=== PATIENT | female | born 1990 | race Caucasian/White ===

== ENCOUNTER → 2024-12-08 | Outpatient (CLI) | payer OTHER, SELFPAY ==
--- NOTE | 2024-12-08 11:08 | MRI_ITS ---
PROCEDURE: BREAST BILATERAL W/O AND W 12/08/2024 REASON FOR EXAM: FAMILY HX BREAST CANCER. Right breast pain. TECHNIQUE: Bilateral breast MRI using a dedicated bilateral breast coil before and following intravenous contrast. Images reviewed with subtraction and DynaCAD. CONTRAST: 17 ml of Clariscan IV COMPARISON: None. FINDINGS: Amount of Fibroglandular Tissue: Heterogeneous fibroglandular tissue. Background Parenchymal Enhancement: Minimal background enhancement. RIGHT Breast: No suspicious mass or non-mass enhancement. There are several masses noted throughout the right breast. A complete right breast ultrasound is recommended for further evaluation. These masses may be the cause of her breast pain. LEFT Breast: No suspicious mass or non-mass enhancement. There are several masses noted throughout the left breast. A complete left breast ultrasound is recommended for further evaluation. Other Findings: No suspicious axillary or internal mammary lymph nodes. Visualized portions of the thoracic viscera are unremarkable. Hepatic masses are seen. They appear to represent cysts however ultrasound is recommended for further evaluation. MRI/Breast Bilateral W/O and W IMPRESSION: There are bilateral breast masses and liver masses seen. Ultrasound of both breasts is recommended for further evaluation of the masses. The right breast masses may be the cause of her breast pain. Patient may also benefit by having an ultrasound of the liver for further evalu ation of the hepatic masses. OVERALL BI-RADS CATEGORY: A/0. Incomplete Reading Location: [id number]
== END | disposition home or self-care (01) ==
PROVIDERS: PCP Family Medicine
DX: Z80.3 Family history of malignant neoplasm of breast (principal)
CPT/HCPCS: 77049; A9575; A4216; C8908

== ENCOUNTER → 2025-05-12 | Outpatient (CLI) | payer OTHER, SELFPAY ==
--- NOTE | 2025-05-12 08:42 | US_ITS ---
PROCEDURE: BREAST LIMITED UNILATERAL 05/12/2025 REASON FOR EXAM: F, Age 34 y/o , ABN MAMM COMPARISON: Prior mammogram done earlier in the day.. TECHNIQUE: Procedure Code: USBRSTLIMIT Modality: US Procedure: BREAST LIMITED UNILATERAL. The entire right breast was examined with ultrasound. FINDINGS: There is a 4 mm x 6 mm by 4 mm well-defined hypoechoic solid nodule at the 11 o'clock position of the breast at 4 cm from the nipple. This is unchanged as compared to prior sonogram from an outside institution. This may represent a small fibroadenoma. US/Breast Limited Unilateral IMPRESSION: Stable 4 mm x 4 mm x 6 mm well-defined hypoechoic nodule at the 11 o'clock posi tion of the breast at 4 cm from the nipple. Biopsy recommended if not already performed. BI-RADS 4: SUSPICIOUS RECOMMENDATION: Biopsy Recommended Reading Location: [place] [id number]
--- NOTE | 2025-05-12 08:42 | BI_ITS ---
EXAM: DIAG MAMM W/CAD, BILAT 05/12/2025 CLINICAL HISTORY: F, Age 34 y/o , ABN MAMM. Grandmother with breast cancer. Prior MRI demonstrated bilateral breast masses. TECHNIQUE: Procedure Code: [id number] Modality: MG Procedure: DIAG MAMM W/CAD, BILAT. COMPARISON: Prior exam(s) dated April 30, 2024.. FINDINGS: TISSUE DENSITY: The breasts are extremely dense, which lowers the sensitivity of mammography. Bilateral Breast Mammographic Findings: No significant masses, calcifications or other abnormalities are identified. No suspicious masses, areas of developing architectural distortion, or suspicious calcifications. There has been no significant interval change. BI/DIAG MAMM W/CAD, BILAT IMPRESSION: Stable mammogram. With the patient's history of abnormal MRI, sonographic leonidas elation recommended. OVERALL FINAL ASSESSMENT BI-RADS 0: INCOMPLETE - NEED ADDITIONAL IMAGING EVALUATION. RECOMMENDATION: Ultrasound Recommended Additional Recommendation none A letter with findings and recommendations will be mailed to the patient. Reading Location: [place] [id number]
--- NOTE | 2025-05-12 08:42 | US_ITS ---
PROCEDURE: BREAST LIMITED UNILATERAL 05/12/2025 REASON FOR EXAM: F, Age 34 y/o , ABN MAMM COMPARISON: Prior mammogram done earlier in the day.. TECHNIQUE: Procedure Code: USBRSTLIMIT Modality: US Procedure: BREAST LIMITED UNILATERAL left breast sonogram. FINDINGS: Dense fibroglandular tissue. No sonographic abnormality is seen. US/Breast Limited Unilateral IMPRESSION: Dense fibroglandular tissue. No sonographic abnormality is seen. BI-RADS 1: NEGATIVE RECOMMENDATION: Routine annual follow-up in 1 Year Reading Location: [place] [id number]
== END | disposition home or self-care (01) ==
PROVIDERS: PCP Family Medicine; Referring Provider Obstetrics & Gynecology Obstetrics; Visit Provider Obstetrics & Gynecology Obstetrics
DX: R92.8 Other abnormal and inconclusive findings on diagnostic imaging of breast (principal)
CPT/HCPCS: 76642; 77062; 77066; G0279

== ENCOUNTER → 2025-05-25 | Outpatient (CLI) | payer OTHER, SELFPAY ==
--- NOTE | 2025-05-25 07:41 | US_ITS ---
PROCEDURE: US BREAST BIOPSY 1ST LESION 05/25/2025 REASON FOR EXAM: F, Age 34 y/o , RIGHT BREAST MASS TECHNIQUE: Procedure Code: [id number] Modality: US Procedure: US BREAST BIOPSY 1ST LESION. Under direct sonographic guidance, the surgeon performed core biopsies of the 5 mm x 4 mm x 3 mm hypoechoic nodule at the 11 o'clock position of the breast at 4 cm from the nipple. COMPARISON: Prior exam(s) dating back to prior sonogram dated May 12, 2025.. FINDINGS: ULTRASOUND: Ultrasound was targeted to the 4 o'clock position of the breast right. Under direct sonographic guidance, the surgeon performed for core biopsies of the hypoechoic nodule at the 11 o'clock position of the breast at 4 cm from the nipple. US/US Breast Biopsy 1st Lesion IMPRESSION: OVERALL FINAL ASSESSMENT: BIRADS 4C SUSPICIOUS ABNORMALITY- RECOMMENDATION: Await in the pathology results. Reading Location: [id number]
--- OUTSIDE RECORDS SUMMARY | 2025-05-25 07:58 | XMS RPT_ITS | CCD ---
Author Organization [facility] [place] [facility] Team Providers Care Microsoft Access Developer Name Role Phone Sylvia Hansen MD Primary Care [facility] er SYLVIA HANSEN Attending Unavailable TYRONE, SYLVIA Primary Care Unavailable PROVIDER, UNKNOWN Referring Unavailable SYLVIA HANSEN Attending Unavailable TYRONE, SYLVIA Primary Care Unavailable PROVIDER, UNKNOWN Referring Unavailable SYLVIA HANSEN Attending Unavailable PROVIDER, UNKNOWN Referring Unavailable SYLVIA HANSEN Primary Care Unavailable SYLVIA HANSEN Attending Unavailable PROVIDER, UNKNOWN Referring Unavailable SYLVIA HANSEN Primary Care Unavailable SYLVIA HANSEN Attending Unavailable SYLVIA HANSEN Primary Care Unavailable PROVIDER, UNKNOWN Referring Unavailable PHYSICIAN, NONE Primary Care Physician Unavailab le PHYSICIAN, NONE Primary Care Unavailable MIRIAM LIN Attending Unavailable JACQUIE CYR, DR SALIMA Solomon Attending Arcelia DHILLON MD, DR SALIMA Solomon Admitting Arcelia lara PHYSICIAN, NONE Primary Care Unavailable Sylvia Hansen MD Primary Care Provider [phone] ANGELA RICHARDSON Attending Unavailable ANGELA RICHARDSON Referring Unavailable SYLVIA HANSEN Primary Care Unavailable ANGELA RICHARDSON Attending Unavailable ANGELA RICHARDSON Referring Unavailable TYRONE, SYLVIA Primary Care Unavailable SYLVIA HANSEN Attending Unavailable SYLVIA HANSEN Referring Unavailable TYRONE, SYLVIA Primary Care Unavailable Brooklynan, Sylvia Primary Care Unavailable Kuldeep Pardo Referring Unavailable Kuldeep Pardo Attending Unavailable JOSE ALFREDO DAMON Referring Unavailable JOSE ALFREDO DAMON Attending Unavailable FinSylvia Moralez Primary Care Unavailabl e Tyrone, Sylvia Primary Care Unavailable Kuldeep London Referring Unavailable Kuldeep London Attending Unavailable Kuldeep Pardo Attending Unavailable Sylvia Hansen Referring Unavailable FinSylvia mills Primary Care Unavailable Surya CYR, Dr. Kuldeep Chan Attending Physician Surya CYR, Dr. Kuldeep Chan Referring Provider Tyrone CYR, Dr. Greenwood Primary Care Physician Tyrone CYR, Dr. Greenwood Referring Provider Char CYR, Dr. Kuldeep Fortune Attending Physician [phone] Medications Current Medications Medication Drug Class(es) Dates Sig (Normalized) Sig (Original) Drospirenone-Ethin yl Estradiol (6 sources) Progestin, Estrogen Start: 05-18-2025 take 3 tablets by mouth once daily Drospirenone-Ethi nyl Estradiol (Kajal (28)) 3-0.02 mg tablet Active 1 {tbl} PO daily May 18, 2025 12:00am Complies with drug therapy Start: 11-28-2018 take 1 tablet by addie th once daily GIANVI 3-0.02 MG per tablet TAKE 1 TABLET BY MOUTH EVERY DAY 84 tablet 3 11/28/2018 Active ibuprofen 600 mg oral tablet (1 source) Nonsteroidal Anti-inflammatory Drug Start: 05-16-2020 ibuprofen 600 mg oral tablet Dose : 600 mg = 1 tab(s), Oral, q6h, PRN for pain, Take with food or milk., # 40 tab(s), 0 Refill(s) Start Date: 05/16/20 Status: Ordered PNV Select (1 source) Start: 05-15-2020 PNV Select Ora l, qDay, 0 Refill(s) Start Date: 05/15/20 Status: Ordered Completed/Discontinued Medications Medication Drug Class(es) Dates Sig (Normalized) Sig (Original) [id number] 200 actuat albuterol 0.09 mg/actuat metered dose inhaler (1 source) beta2-Adrenergic Agonist Start: 11-15-2021 End: 11-15-2021 albuterol sulfate HFA 108 (90 Base) MCG/ACT inhaler 4 puff Start: 11-15-2021 End: 11-15-2021 albuterol sulfate HFA 108 (9 0 Base) MCG/ACT inhaler 4 puff Problems Active Problems Problem Classification Problem Date Documented Date Episodic/Chronic Biliary tract disease (4 sources) Cholesterolosis of gallbladder; Translations: [Disease of gallbladder, unspecified] Onset: 11-15-2021 Episodic Nonmalignant breast conditions (15 sources) Pain of breast; Translations: [Mastodynia] Onset: 04-30-2024 04-30-2024 Episodic Other diseases of kidney and ureters (2 sources) Cyst of kidney, acquired; Translations: [Cyst of kidney, acquired] Onset: 06-07-2022 Episodic Other liver diseases (2 sources) Other specified diseases of liver; Translations: [Other specified diseases of liver] Onset: 06-07-2022 Chronic Other and delivery including normal (3 sources) ; Translations: [Encounter for supervision of other normal , third trimester] Onset: 04-18-2023 05-11-2023 Episodic Comment on above: System added from do cumentation. Status documented as Yes on Admission Other screening for suspected conditions (not mental disorders or infectious disease) (2 sources) Abnormal findings on diagnostic imaging of other specified body structures; Translations: [Abnormal findings on dx imaging of oth body structures] Onset: 10-28-2021 Chronic Other screening for suspected conditions (not mental disorders or infectious disease) (4 sources) Encounter for screening for Streptococcus B; Translations: [Other abnormal and inconclusive findings on diagnostic imaging of breast] Onset: 04-18-2023 Episodic Unclassified (1 source) Cough, unspecified; Translations: [Cough, unspecified] Onset: 10-20-2021 Unclassified (1 source) Breast feeding () (observable entity) 05-15-2020 Comment on above: System added from do cumentation. Breast feeding Status documented as Yes on Admission Past or Other Problems Problem Classification Problem Date Documented Da te Episodic/Chronic Other lower respiratory disease (2 sources) Other nonspecific abnormal finding of lung field; Translations: [Other nonspecific abnormal finding of lung field] Onset: 10-20-2021 Episodic Residual codes; unclassified (1 source) Family history of malignant neoplasm of breast; Translations: [Family history of malignant neoplasm of breast] Onset: 01-27-2025 Episodic Unclassified (1 source) Cough, unspecified; Translations: [Cough, unspecified] Onset: 10-20-2021 Results Test Name Value Interpretation Reference Range Facility Surgery Visit Reporton 05-18 Surgery Visit Report [facility] [address] [place] [address] OFFICE VISIT Date of Service: 05/18/25 MR#: [id number] Acct: [id number] Name: CARLOS FRANCOIS Rep #: [id number] : 1990 Provider: Dr. Kuldeep garcia MD Age/Sex: 34/F Location: [facility] Status: Signed Intake Vital Signs 05/18/25 13:59 Weight: 193 lb BP 115/76 Blood Pressure Location Rt brachial Position Sitting Respiration 17 Pulse 62 Pulse Source Monitor Pulse Oximetry (%) 100 Oxygen Delivery Method room air Intake Visit Reasons: BIRADS 4 Chief Complaint: birads 4 Is patient in pain?: No Allergies No Known Allergies Allergy (Verified 05/18/25 14:00) Medications ???Medication ???Instructions ???Recorded ???Confirmed ???Type drospirenone 3 mg-ethinyl 1 tab PO QDAY 05/18/25 05/18/25 Hi story estradiol 0.02 mg tablet (KAJAL (28)) PFSH Family History (Updated 05/18/25 @ 13:58 by Latrice Akins) Grandmother Breast cancer Father Heart disease Hypertension Social History (Updated 05/18/25 @ 13:58 by Latrice Akins) Smoking Status: Never smoker alcohol intake: current alcohol intake frequency: holidays/special occasions only HPI HPI HPI: The patient is a 34-year-old female who is being seen today for an abnormal right breast mammogram and ultrasound. She states that she does have a family history of breast cancer in one of her grand mothers. No other family members with breast cancer. She denies any nipple discharge or drainage. She notes some mild tenderness in the upper aspect of the right breast but no obvious masses or other abnormalities. She states that this tenderness has been present for about the past year. Ultrasound recently showed about a 3 to 4 mm hypoechoic nodule in the right breast. She presents today for evaluation and possible biopsy ROS General General: No weight change, appetite, fatigue, colon cancer, breast cancer or weakness HEENT HEENT: No difficulty swallowing, eye injury, eye surgery, swollen glands or hoarseness Endo Endocrine: No thyroid disease, diabetes mellitus, thyroid cancer, Hair loss, heat intolerance or cold intolerance Skin Skin: Yes changing moles; No rash Breast Breast: Yes right breast lump, abnormal mammogram and abnormal US; No left breast lump, nipple discharge, breast pain or breast enlargement Musc Musculoskeletal: No back problems, arthritis, rheumatoid arthritis, gout or joint pain Cardio Cardiovascular: No murmur, pacemaker, heart disease, atrial fibrillation, high blood pressure, heart attack, heart stent, palpitations, shortness of breath with exertion or chest pain Psych Psychiatric: No depression, anxiety or hearing voices Resp Respiratory: No shortness of breath, No sleep apnea, No cough, No COPD, No asthma, No emphysema and No wheezing Gastro Gastrointestinal: No abdominal pain, No nausea or vomiting, No diarrhea, No constipation, No blood in stool, No acid reflux, No hemorrhoids, No ulcers, No gallbladder problem and No black,tarry stools Sameer Hematologic: No blood thinners, No blood disorders, No bleeding, No anemia and No blood clots Neuro Neurologic: No system reviewed and no additional complaints, except as documented, No as per HPI, No abnormal gait, No abnormal hearing, No abnormal movements, No abnormal speech, No behavioral changes, No burning sensations, No confusion, No convulsions, No disequilibrium, No dizziness, No localized weakness, No frequent falls, No headache(s), No lack of coordination, No loss of vision, No memory loss, No numbness, No other visual disturbances, No radicular pain, No restless legs, No sensory deficit, No syncope, No tingling, No tremor(s), No weakness and No other Exam Const General: cooperative, healthy appearing, comfortable, no acute distress and acute distress [facility] Head: normal to inspection Eyes General: appearance normal, both eyes and all related structures Neck Neck: normal visual inspection Chest Breast Palpation: Yes normal palpation of the breasts and Yes normal palpation of the axillae Assessment and Plan Assessment and Plan (1) Breast mass, right: Status: Acute Plan: The patient is a 34-year-old female who presents today with an abnormal right breast ultrasound. This showed a 3 to 4 mm hypoechoic lesion. Biopsy was recommended. This was felt to be too small to identify in the office today. Instead, I have recommended that we schedule this as an ultrasound-guided core biopsy to be performed in radiology. We discussed the details of the planned procedure and she wishes to proceed. This will be scheduled in a timely manner. Coding Level of Care Code Off vis,new,level 4 Diagnoses Breast mass, right N63.10 05/18/25 1434 Date (more content not included)... Normal [facility] Breast imaging reportOrdered By: Angel Lockwood on 05-13-2025 Study report [facility] Services [address] [place] [address] DIAG MAMM W/CAD, BILAT MR#: [id number] Acct: [id number] Name: CARLOS FRANCOIS Rep #: [id number] : 1990 F 34 From: Jeffry Lockwood MD PCP: Dr. Sylvia Hansen MD Status: R EG CLI Study:DIAG MAMM W/CAD, BILAT Date of Exam: 05/12/25 Exam# [id number] Ordering Dr: Kuldeep London MD EXAM: DIAG MAMM W/CAD, BILAT 05/12/2025 CLINICAL HISTORY: F, Age 34 y/o , ABN MAMM. Grandmother with breast cancer. Prior MRI demonstrated bilateral breast masses. TECHNIQUE: Procedure Code: BIDMWCADB Modality: MG Procedure: DIAG MAMM W/CAD, BILAT. COMPARISON: Prior exam(s) dated April 30, 2024.. FINDINGS: TISSUE DENSITY: The breasts are extremely dense, which lowers the sensitivity ofmammography. Bilateral Breast Mammographic Findings: No significant masses, calcifications or other abnormalities are identified. No suspicious masses, areas of developing architectural distortion, or suspicious calcifications. There has been no significant interval change. BI/DIAG MAMM W/CAD, BILAT IMPRESSION: Stable mammogram. With the patient's history of abnormal MRI, sonographic correlation recommended. OVERALL FINAL ASSESSMENT BI-RADS 0: INCOMPLETE - NEED ADDITIONAL IMAGING EVALUATION. RECOMMENDATION: Ultrasound Recommended Additional Recommendation none A letter with findings and recommendations will be mailed to the patient. Reading Location: [place] [address] CC: Dr. Sylvia Hansen MD; Dr. Kuldeep London MD ~ Dinkey Mechanic: Signed [facility] Breast Limited Unilateralon 05-12-2025 Breast Limited Unilateral [facility] Imaging Services [address] [place], [place] [address] Breast Limited Unilateral MR#: [id number] Acct: [id number] Name: CARLOS FRANCOIS Rep #: [id number] : 1990 F 34 From: Angel colvin MD PCP: Dr. Sylvia Hansen MD Status: REG CLI Study: Breast Limited Unilateral Date of Exam: Exam# [id number] Ordering Dr: Kuldeep London MD PROCEDURE: BREAST LIMITED UNILATERAL 05/12/2025 REASON FOR EXAM: F, Age 34 y/o , ABN MAMM COMPARISON: Prior mammogram done earlier in the day.. TECHNIQUE: Procedure Code: USBRSTLIMIT Modality: US Procedure: BREAST LIMITED UNILATERAL left breast sonogram. FINDINGS: Dense fibroglandular tissue. No sonographic abnormality is seen. US/Breast Limited Unilateral IMPRESSION: Dense fibroglandular tissue. No sonographic abnormality is seen. BI-RADS 1: NEGATIVE RECOMMENDATION: Routine annual follow-up in 1 Year Reading Location: [facility]- CC: Dr. Sylvia Hansen MD; Dr. Kuldeep London MD Dinkey Mechanic: Signed Normal [facility] Breast Limited Unilateral [facility] Imaging Services [address] [place], [place] [address] Breast Limited Unilateral MR#: [id number] Acct: [id number] Name: CARLOS FRANCOIS Rep #: [id number] : 1990 F 34 From: Angel colvin MD PCP: Dr. Sylvia Hansen MD Status: REG CLI Study: Breast Limited Unilateral Date of Exam: Exam# [id number] Ordering Dr: Kuldeep London MD PROCEDURE: BREAST LIMITED UNILATERAL 05/12/2025 REASON FOR EXAM: F, Age 34 y/o , ABN MAMM COMPARISON: Prior mammogram done earlier in the day.. TECHNIQUE: Procedure Code: USBRSTLIMIT Modality: US Procedure: BREAST LIMITED UNILATERAL. The entire right breast was examined with ultrasound. FINDINGS: There is a 4 mm x 6 mm by 4 mm well-defined hypoechoic solid nodule at the 11 o'clock position of the breast at 4 cm from the nipple. This is unchanged as compared to prior sonogram from an outside institution. This may represent a small fibroadenoma. US/Breast Limited Unilateral IMPRESSION: Stable 4 mm x 4 mm x 6 mm well-defined hypoechoic nodule at the 11 o'clock position of the breast at 4 cm from the nipple. Biopsy recommended if not already performed. BI-RADS 4: SUSPICIOUS RECOMMENDATION: Biopsy Recommended Reading Location: [place] [address] CC: Dr. Sylvia Hansen MD; Dr. Kuldeep London MD Dinkey Mechanic: Signed Normal [facility] DIAG MAMM W/CAD, BILATon [facility] Imaging Services [address] [place] [address] DIAG MAMM W/CAD, BILAT MR#: [id number] Acct: [id number] Name: CARLOS FRANCOIS Rep #: [id number] : 1990 F 34 From: Angel colvin MD PCP: Dr. Sylvia Hansen MD Status: [facility] Study: DIAG MAMM W/CAD, BILAT Date of Exam: 05/12/25 Exam# [id number] Ordering Dr: Kuldeep London MD EXAM: DIAG MAMM W/CAD, BILAT 05/12/2025 CLINICAL HISTORY: F, Age 34 y/o , ABN MAMM. Grandmother with breast cancer. Prior MRI demonstrated bilateral breast masses. TECHNIQUE: Procedure Code: BIDMWCADB Modality: MG Procedure: DIAG MAMM W/CAD, BILAT. COMPARISON: Prior exam(s) dated April 30, 2024.. FINDINGS: TISSUE DENSITY: The breasts are extremely dense, which lowers the sensitivity of mammography. Bilateral Breast Mammographic Findings: No significant masses, calcifications or other abnormalities are identified. No suspicious masses, areas of developing architectural distortion, or suspicious calcifications. There has been no significant interval change. BI/DIAG MAMM W/CAD, BILAT IMPRESSION: Stable mammogram. With the patient's history of abnormal MRI, sonographic correlation recommended. OVERALL FINAL ASSESSMENT BI-RADS 0: INCOMPLETE - NEED ADDITIONAL IMAGING EVALUATION. RECOMMENDATION: Ultrasound Recommended Additional Recommendation none A letter with findings and recommendations will be mailed to the patient. Reading Location: [place] [address] CC: Dr. Sylvia Hansen MD; Dr. Kuldeep Lnodon MD Dinkey Mechanic: Signed Normal [facility] Breast Bilateral W/O and Won 12-08-2024 Breast Bilateral W/O and W [facility] Imaging Services [address] [place] [id number] Breast Bilateral W/O and W MR#: [id number] Acct: [id number] Name: CARLOS FRANCOIS Rep #: [id number] : 1990 F 33 From: Fauzia Montez PCP: Sylvia Hansen MD Status: DEP CLI Study: Breast Bilateral W/O and W Date of Exam: 12/08 Exam# [id number] Ordering Dr: KULDEEP LONDON PROCEDURE: BREAST BILATERAL W/O AND W 12/08/2024 REASON FOR EXAM: FAMILY HX BREAST CANCER. Right breast pain. TECHNIQUE: Bilateral breast MRI using a dedicated bilateral breast coil before and following intravenous contrast. Images reviewed with subtraction and DynaCAD. CONTRAST: 17 ml of Clariscan IV COMPARISON: None. FINDINGS: Amount of Fibroglandular Tissue: Heterogeneous fibroglandular tissue. Background Parenchymal Enhancement: Minimal background enhancement. RIGHT Breast: No suspicious mass or non-mass enhancement. There are several masses noted throughout the right breast. A complete right breast ultrasound is recommended for further evaluation. These masses may be the cause of her breast pain. LEFT Breast: No suspicious mass or non-mass enhancement. There are several masses noted throughout the left breast. A complete left breast ultrasound is recommended for further evaluation. Other Findings: No suspicious axillary or internal mammary lymph nodes. Visualized portions of the thoracic viscera are unremarkable. Hepatic masses are seen. They appear to represent cysts however ultrasound is recommended for further evaluation. MRI/Breast Bilateral W/O and W IMPRESSION: There are bilateral breast masses and liver masses seen. Ultrasound of both breasts is recommended for further evaluation of the masses. The right breast masses may be the cause of her breast pain. Patient may also benefit by having an ultrasound of the liver for further evaluation of the hepatic masses. OVERALL BI-RADS CATEGORY: A/0. Incomplete Reading Location: [id number] CC: Sylvia Hansen MD; KULDEEP LONDON Dinkey Mechanic: Signed Normal [facility] BI US BREAST LIMITED RIGHTon 10-29-2024 BI US BREAST LIMITED RIGHT This is a summary report. The complete report is available in the patient's medical record. If you cannot access the medical record, please contact the sending organization for a detailed fax or copy. Patient Name: CARLOS FRANCOIS : 1990 [id number] Exam Date/Time: 10/29/2024 07:51 Procedure: BI US BREAST LIMITED RIGHT Ordering Provider: HANSEN MATTHEW Reason For Exam: This exam was performed at [place] [address] RISK ALERT: The Cancer Risk Assessment scores below the recommendation of this report contain an outcome above the normal risk range. PATIENT CANCER HISTORY: No Personal History of Cancer FAMILY CANCER HISTORY: Paternal Grandmother Breast Cancer age 50 Prior study Comparisons: 04/30/2024 Findings: The patient presents for a right breast ultrasound for follow-up of a probably benign right breast mass. This is the first six-month follow-up exam. There is a stable 5 mm circumscribed hypoechoic mass within the right breast at the 11:00 location, 4 cm from the nipple. This remains probably benign. IMPRESSION: Stable probably benign right breast mass. A six-month follow up bilateral diagnostic mammogram right breast ultrasound is recommended. ASSESSMENT: Category 3 Probably benign RECOMMENDATION: Diagnostic mammogram in 6 months Bilateral Breast ultrasound in 6 months Right CANCER RISK ASSESSMENT: This risk assessment is based on patient provided information collected in a risk survey taken at the time of this examination. LIFETIME BREAST CANCER RISK: Brianer-Rubyzick 8: 25.34% - If greater than or equal to 20%, consider annual mammogram and annual screening Breast MRI or follow up in high risk clinic. Is the patient at elevated risk based on the HBOC criteria? Yes (Hereditary Breast and Ovarian Cancer) - If Yes, consider genetic counseling and testing with high risk follow up Is the patient at elevated risk based on the Cox Syndrome criteria? No - If Yes, consider genetic counseling and testing with high risk follow up. Report Dictated on Electronically Signed By: Dilma Morton MD Electronically Signed Date/Time: 10/29/2024 8:31 AM T [email or web address] Operational Intelligence Analyst ID: [id number] Request ID: [id number] [facility] US Breast - right limitedon 10-29-2024 Stable probably omer gn right breast mass. A six-month follow up bilateral diagnostic mammogram right breast ultrasound is recommended. ASSESSMENT: Category 3 Probably benign RECOMMENDATION: Diagnostic mammogram in 6 months Bilateral Breast ultrasound in 6 months Right CANCER RISK ASSESSMENT: This risk assessment is based on patient provided information collected in a risk survey taken at the time of this examination. LIFETIME BREAST CANCER RISK: Brianer-Cuzick 8: 25.34% - If greater than or equal to 20%, consider annual mammogram and annual screening Breast MRI or follow up in high risk clinic. Is the patient at elevated risk based on the HBOC criteria? Yes (Hereditary Breast and Ovarian Cancer) - If Yes, consider genetic counseling and testing with high risk follow up Is the patient at elevated risk based on the Cox Syndrome criteria? No - If Yes, consider genetic counseling and testing with high risk follow up. Report Dictated on Electronically Signed By: Dilma Morton MD Electronically Signed Date/Time: 10/29/2024 8:31 AM [facility] Patient Name: CARLOS FRANCOIS : 1990 Exam Date/Time: 10/29/2024 07:51 Procedure: BI US BREAST LIMITED RIGHT Ordering Provider: HANSEN MATTHEW Reason For Exam: This exam was performed at [facility] [address] [place] [address] RISK ALERT: The Cancer Risk Assessment scores below the recommendation of this report contain an outcome above the normal risk range. PATIENT CANCER HISTORY: No Personal History of Cancer FAMILY CANCER HISTORY: Paternal Grandmother Breast Cancer age 50 Prior study Comparisons: 04/30/2024 Findings: The patient presents for a right breast ultrasound for follow-up of a probably benign right breast mass. This is the first six-month follow-up exam. There is a stable 5 mm circumscribed hypoechoic mass within the right breast at the 11:00 location, 4 cm from the nipple. This remains probably benign. [facility] Dilma Morton MD - 10/29/2024 Patient Name: CARLOS FRANCOIS : 1990 Exam Date/Time: 10/29/2024 07:51 Procedure: BI US BREAST LIMITED RIGHT Ordering Provider: HANSEN MATTHEW Reason For Exam: This exam was performed at [facility] [address] [place] [address] RISK ALERT: The Cancer Risk Assessment scores below the recommendation of this report contain an outcome above the normal risk range. PATIENT CANCER HISTORY: No Personal History of Cancer FAMILY CANCER HISTORY: Paternal Grandmother Breast Cancer age 50 Prior study Comparisons: 04/30/2024 Findings: The patient presents for a right breast ultrasound for follow-up of a probably benign right breast mass. This is the first six-month follow-up exam. There is a stable 5 mm circumscribed hypoechoic mass within the right breast at the 11:00 location, 4 cm from the nipple. This remains probably benign. IMPRESSION: Stable probably benign right breast mass. A six-month follow up bilateral diagnostic mammogram right breast ultrasound is recommended. ASSESSMENT: Category 3 Probably benign RECOMMENDATION: Diagnostic mammogram in 6 months Bilateral Breast ultrasound in 6 months Right CANCER RISK ASSESSMENT: This risk assessment is based on patient provided information collected in a risk survey taken at the time of this examination. LIFETIME BREAST CANCER RISK: Yoandy 8: 25.34% - If greater than or equal to 20%, consider annual mammogram and annual screening Breast MRI or follow up in high risk clinic. Is the patient at elevated risk based on the HBOC criteria? Yes (Hereditary Breast and Ovarian Cancer) - If Yes, consider genetic counseling and testing with high risk follow up Is the patient at elevated risk based on the Cox Syndrome criteria? No - If Yes, consider genetic counseling and testing with high risk follow up. Report Dictated on Electronically Signed By: Dilma Morton MD Electronically Signed Date/Time: 10/29/2024 8:31 AM EDT [facility] Radiology Study observation (narrative) [facility] US Breast - right limitedOrd ered By: Dilma Morton on 10-29-2024 [facility] Work Phone: BI US BREAST LIMITED RIGHTon 04-30-2024 BI US BREAST LIMITED RIGHT This is a summary report. The complete report is available in the patient's medical record. If you cannot access the medical record, please contact the sending organization for a detailed fax or copy. Patient Name: CARLOS FRANCOIS : 1990 Exam Date/Time: 04/30/2024 09:07 Procedure: BI US BREAST LIMITED RIGHT Ordering Provider: RICHARDSON ELIZABETH Reason For Exam: [place]STAL[place] This exam was performed at: [address] [address] RISK ALERT: The Cancer Risk Assessment scores below the recommendation of this report contain an outcome above the normal risk range. PATIENT CANCER HISTORY: No Personal History of Cancer FAMILY CANCER HISTORY: Paternal Grandmother Breast Cancer age 50 COMPARISONS: There were no priors available for comparison. MAMMOGRAM: Image views: 2D CC and MLO views were acquired. 3D CC and MLO views were acquired. Markings on images: BB's = Nipples; skin lesions Open nez perce = Palpable Line = Scar TISSUE DENSITY: BIRADS C - The breast tissue is heterogeneously dense, which could obscure underlying abnormalities. Images were reviewed with CAD. FINDINGS: The patient presented for evaluation of pain with compression beneath the right nipple. No suspicious masses, architectural distortions, or suspiciously clustered microcalcifications were identified in the right or left breast. This was the patient's baseline mammogram. The patient proceeded to ultrasound for further workup. BREAST ULTRASOUND: FINDINGS: Targeted ultrasound of the nipple demonstrated a likely incidental 0.5 x 0.4 x 0.6 cm oval circumscribed hypoechoic mass. No vascularity was detected. This may reflect a complicated cyst. Follow-up recommended. IMPRESSION: Incidental right breast mass, likely a benign complicated cyst. Surveillance with ultrasound in six months recommended. ASSESSMENT: Category 3 Probably benign RECOMMENDATION: Breast ultrasound in 6 months Right CANCER RISK ASSESSMENT: This risk assessment is based on patient provided information collected in a risk survey taken at the time of this examination. LIFETIME BREAST CANCER RISK: Yoandy 8: 25.34% - If greater than or equal to 20%, consider annual mammogram and annual screening Breast MRI or follow up in high risk clinic. Is the patient at elevated risk based on the HBOC criteria? Yes (Hereditary Breast and Ovarian Cancer) - If Yes, consider genetic counseling and testing with high risk follow up Is the patient at elevated risk based on the Cox Syndrome criteria? No - If Yes, consider genetic counseling and testing with high risk follow up. Report Dictated on Electronically Signed By: Augustine Simpson MD Electronically Signed Date/Time: 04/30/2024 9:14 AM EDT Normal [facility] DBT Breast - bilateral diagn osticon 04-30-2024 Patient Name: CARLOS FRANCOIS : 1990 Exam Date/Time: 04/30/2024 08:02 Procedure: BI MAMMOGRAM DIAGNOSTIC TOMOSYNTHESIS BILATERAL Ordering Provider: RICHARDSON ELIZABETH Reason For Exam: This exam was performed at: [place] [address] RISK ALERT: The Cancer Risk Assessment scores below the recommendation of this report contain an outcome above the normal risk range. PATIENT CANCER HISTORY: No Personal History of Cancer FAMILY CANCER HISTORY: Paternal Grandmother Breast Cancer age 50 COMPARISONS: There were no priors available for comparison. MAMMOGRAM: Image views: 2D CC and MLO views were acquired. 3D CC and MLO views were acquired. Markings on images: BB's = Nipples; skin lesions Open nez perce = Palpable Line = Scar TISSUE DENSITY: BIRADS C - The breast tissue is heterogeneously dense, which could obscure underlying abnormalities. Images were reviewed with CAD. FINDINGS: The patient presented for evaluation of pain with compression beneath the right nipple. No suspicious masses, architectural distortions, or suspiciously clustered microcalcifications were identified in the right or left breast. This was the patient's baseline mammogram. The patient proceeded to ultrasound for further workup. BREAST ULTRASOUND: FINDINGS: Targeted ultrasound of the nipple demonstrated a likely incidental 0.5 x 0.4 x 0.6 cm oval circumscribed hypoechoic mass. No vascularity was detected. This may reflect a complicated cyst. Follow-up recommended. [facility] Augustine Simpson MD - 04/30/2024 Patient Name: CARLOS FRANCOIS : 1990 [facility]#: [id number] Exam Date/Time: 04/30/2024 08:02 Procedure: BI MAMMOGRAM DIAGNOSTIC TOMOSYNTHESIS BILATERAL Ordering Provider: RICHARDSON ELIZABETH Reason For Exam: This exam was performed at: [address] [address] RISK ALERT: The Cancer Risk Assessment scores below the recommendation of this report contain an outcome above the normal risk range. PATIENT CANCER HISTORY: No Personal History of Cancer FAMILY CANCER HISTORY: Paternal Grandmother Breast Cancer age 50 COMPARISONS: There were no priors available for comparison. MAMMOGRAM: Image views: 2D CC and MLO views were acquired. 3D CC and MLO views were acquired. Markings on images: BB's = Nipples; skin lesions Open nez perce = Palpable Line = Scar TISSUE DENSITY: BIRADS C - The breast tissue is heterogeneously dense, which could obscure underlying abnormalities. Images were reviewed with CAD. FINDINGS: The patient presented for evaluation of pain with compression beneath the right nipple. No suspicious masses, architectural distortions, or suspiciously clustered microcalcifications were identified in the right or left breast. This was the patient's baseline mammogram. The patient proceeded to ultrasound for further workup. BREAST ULTRASOUND: FINDINGS: Targeted ultrasound of the nipple demonstrated a likely incidental 0.5 x 0.4 x 0.6 cm oval circumscribed hypoechoic mass. No vascularity was detected. This may reflect a complicated cyst. Follow-up recommended. IMPRESSION: Incidental right breast mass, likely a benign complicated cyst. Surveillance with ultrasound in six months recommended. ASSESSMENT: Category 3 Probably benign RECOMMENDATION: Breast ultrasound in 6 months Right CANCER RISK ASSESSMENT: This risk assessment is based on patient provided information collected in a risk survey taken at the time of this examination. LIFETIME BREAST CANCER RISK: Brianer-Arianack 8: 25.34% - If greater than or equal to 20%, consider annual mammogram and annual screening Breast MRI or follow up in high risk clinic. Is the patient at elevated risk based on the HBOC criteria? Yes (Hereditary Breast and Ovarian Cancer) - If Yes, consider genetic counseling and testing with high risk follow up Is the patient at elevated risk based on the Cox Syndrome criteria? No - If Yes, consider genetic counseling and testing with high risk follow up. Report Dictated on Electronically Signed By: Augustine Simpson MD Electronically Signed Date/Time: 04/30/2024 9:14 AM EDT [facility] Radiology Study observation (narrative) [facility]th No Panel Informationon 04-30 Incidental right breast mass, likely a benign complicated cyst. Surveillance with ultrasound in six months recommended. ASSESSMENT: Category 3 Probably benign RECOMMENDATION: Breast ultrasound in 6 months Right CANCER RISK ASSESSMENT: This risk assessment is based on patient provided information collected in a risk survey taken at the time of this examination. LIFETIME BREAST CANCER RISK: Tyrer-Cuzick 8: 25.34% - If greater than or equal to 20%, consider annual mammogram and annual screening Breast MRI or follow up in high risk clinic. Is the patient at elevated risk based on the HBOC criteria? Yes (Hereditary Breast and Ovarian Cancer) - If Yes, consider genetic counseling and testing with high risk follow up Is the patient at elevated risk based on the Cox Syndrome criteria? No - If Yes, consider genetic counseling and testing with high risk follow up. Report Dictated on Electronically Signed By: Augustine Simpson MD Electronically Signed Date/Time: 04/30/2024 9:14 AM EDT [facility] No Panel InformationOrdered By: Augustine Simpson on 04-30-2024 [facility] Work Phone: US Breast - right limitedon 04-30-2024 Patient Name: CARLOS FRANCOIS : 1990 [id number] Exam Date/Time: 04/30/2024 09:07 Procedure: BI US BREAST LIMITED RIGHT Ordering Provider: RICHARDSON ELIZABETH Reason For Exam: MASTALGIA This exam was performed at: [place] [id number] RISK ALERT: The Cancer Risk Assessment scores below the recommendation of this report contain an outcome above the normal risk range. PATIENT CANCER HISTORY: No Personal History of Cancer FAMILY CANCER HISTORY: Paternal Grandmother Breast Cancer age 50 COMPARISONS: There were no priors available for comparison. MAMMOGRAM: Image views: 2D CC and MLO views were acquired. 3D CC and MLO views were acquired. Markings on images: BB's = Nipples; skin lesions Open nez perce = Palpable Line = Scar TISSUE DENSITY: BIRADS C - The breast tissue is heterogeneously dense, which could obscure underlying abnormalities. Images were reviewed with CAD. FINDINGS: The patient presented for evaluation of pain with compression beneath the right nipple. No suspicious masses, architectural distortions, or suspiciously clustered microcalcifications were identified in the right or left breast. This was the patient's baseline mammogram. The patient proceeded to ultrasound for further workup. BREAST ULTRASOUND: FINDINGS: Targeted ultrasound of the nipple demonstrated a likely incidental 0.5 x 0.4 x 0.6 cm oval circumscribed hypoechoic mass. No vascularity was detected. This may reflect a complicated cyst. Follow-up recommended. [facility] Augustine Simpson MD - 04/30/2024 Patient Name: CARLOS FRANCOIS : 1990 [facility]#: [id number] Exam Date/Time: 04/30/2024 09:07 Procedure: BI US BREAST LIMITED RIGHT Ordering Provider: RICHARDSON ELIZABETH Reason For Exam: MASTALGIA This exam was performed at: [place] [address] [address] [facility] [address] RISK ALERT: The Cancer Risk Assessment scores below the recommendation of this report contain an outcome above the normal risk range. PATIENT CANCER HISTORY: No Personal History of Cancer FAMILY CANCER HISTORY: Paternal Grandmother Breast Cancer age 50 COMPARISONS: There were no priors available for comparison. MAMMOGRAM: Image views: 2D CC and MLO views were acquired. 3D CC and MLO views were acquired. Markings on images: BB's = Nipples; skin lesions Open nez perce = Palpable Line = Scar TISSUE DENSITY: BIRADS C - The breast tissue is heterogeneously dense, which could obscure underlying abnormalities. Images were reviewed with CAD. FINDINGS: The patient presented for evaluation of pain with compression beneath the right nipple. No suspicious masses, architectural distortions, or suspiciously clustered microcalcifications were identified in the right or left breast. This was the patient's baseline mammogram. The patient proceeded to ultrasound for further workup. BREAST ULTRASOUND: FINDINGS: Targeted ultrasound of the nipple demonstrated a likely incidental 0.5 x 0.4 x 0.6 cm oval circumscribed hypoechoic mass. No vascularity was detected. This may reflect a complicated cyst. Follow-up recommended. IMPRESSION: Incidental right breast mass, likely a benign complicated cyst. Surveillance with ultrasound in six months recommended. ASSESSMENT: Category 3 Probably benign RECOMMENDATION: Breast ultrasound in 6 months Right CANCER RISK ASSESSMENT: This risk assessment is based on patient provided information collected in a risk survey taken at the time of this examination. LIFETIME BREAST CANCER RISK: Yoandy 8: 25.34% - If greater than or equal to 20%, consider annual mammogram and annual screening Breast MRI or follow up in high risk clinic. Is the patient at elevated risk based on the HBOC criteria? Yes (Hereditary Breast and Ovarian Cancer) - If Yes, consider genetic counseling and testing with high risk follow up Is the patient at elevated risk based on the Cox Syndrome criteria? No - If Yes, consider genetic counseling and testing with high risk follow up. Report Dictated on Electronically Signed By: Augustine Simpson MD Electronically Signed Date/Time: 04/30/2024 9:14 AM EDT [facility] Radiology Study observation (narrative) Annika ValentinoAuto Diffon 05-12-2023 Basophil, Absolute 0.0 10 3/mcL Normal 0.0-0.3 [facility] ([place]) Comment on above: Performed By: #### A DEYVI ADHIKARI, CBC #### [address] [address] Basophils/100 WBC (Bld) 0.3 % Normal 0.0-2.5 A [facility] ([place]) Comment on above: Performed By: #### A DEYVI ADHIKARI, CBC #### [address] [address] Eosinophil, Absolute 0.0 10 3/mcL Normal 0.0-0.7 [facility] ([place]) Comment on above: Performed By: #### A DEYVI ADHIKARI, CBC #### [address] [address] Eosinophils/100 WBC (Bld) 0.6 % Normal 0.0-6.0 [facility] ([place]) Comment on above: Performed By: #### A DEYVI ADHIKARI, CBC #### [address] [address] Lymphocyte, Absolute 2.6 10 3/mcL Normal 0.9-4.3 [facility] ([place]) Comment on above: Performed By: #### A ZEYNEPDEYVI, CBC #### [address] [address] Lymphocytes/100 WBC (Bld) 35.1 % Normal 20.0-40.0 [facility] ([place]) Comment on above: Performed By: #### A ZEYNEPDEYVI, CBC #### [address] [address] Monocyte, Absolute 0.6 10 3/mcL Normal 0.1-1.4 [facility] ([place]) Comment on above: Performed By: #### A DEYVI ADHIKARI, CBC #### [address] [address] Monocytes/100 WBC (Bld) 7.9 % Normal 2.0-13.0 A [facility] ([place]) Comment on above: Performed By: #### A DEYVI ADHIKARI, CBC #### [address] [address] Neutrophils/100 WBC (Bld) 56.1 % Normal 50.0-75.0 [facility] ([place]) Comment on above: Performed By: #### A DEYVI ADHIKARI, CBC #### [address] [address] .NEUABSon 05-12-2023 Neutrophil, Absolute 4.2 10 3/mcL Normal 2.3-8.1 [facility] ([place]) Comment on above: Performed By: #### A DEYVI ADHIKARI, CBC #### [place] [address] CBCon 05-12-2023 Erythrocyte distribution width (RBC) [Ratio] 16.8 % High 11.5-15.5 [facility] ([place]) Comment on above: Performed By: #### A DEYVI ADHIKARI, CBC #### [place] [address] Hematocrit (Bld) [Volume fraction] 33.0 % Low 34.0-46.0 [facility] ([place]) Comment on above: Performed By: #### A DEYVI ADHIKARI, CBC #### [place] [address] Hgb 10.7 G/dL Low 12.0-16.0 [facility] ([place]) Comment on above: Performed By: #### A DEYVI ADHIKARI, CBC #### [place] [address] MCH (RBC) [Entitic mass] 25.8 pg Low 27.0-33.0 [facility] ([place]) Comment on above: Performed By: #### A DEYVI ADHIKARI, CBC #### [place] [address] MCHC 32.5 G/dL Normal 32.0-36.0 [facility] ([place]) Comment on above: Performed By: #### A DEYVI ADHIKARI, CBC #### [address] [address] MCV (RBC) [Entitic vol] 79.3 fL Low 80.0-99.0 A [facility] ([place]) Comment on above: Performed By: #### A DEYVI ADHIKARI, CBC #### [address] [address] Platelet 224 10 3/mcL Normal 150-450 [facility] ([place]) Comment on above: Performed By: #### A DEYVI ADHIKARI, CBC #### [place] [address] Platelet mean volume (Bld) [Entitic vol] 8.4 fL Normal 6.6-10.5 [facility] ([place]) Comment on above: Performed By: #### A DEYVI ADHIKARI, CBC #### [place] [address] RBC 4.16 10 6/mcL Normal 4.10-5.30 [facility] ([place]) Comment on above: Performed By: #### A DEYVI ADHIKARI, CBC #### [address] [address] WBC 7.5 10 3/mcL Normal 4.5-10.8 [facility] ([place]) Comment on above: Performed By: #### A DEYVI ADHIKARI, CBC #### [address] [address] LABORATORYOrdered By: SYSTEM SYSTEM on 05-12-2023 Basophils (Bld) [#/Vol] 0.0 103/mcL Invalid Interpretation Code 0.0 - 0.3 10^3/mcL AH Workflow SS Basophils/100 WBC (Bld) 0.3 % Invalid Interpretation Code 0.0 - 2.5 % AH Workflow SS Eosinophils (Bld) [#/Vol] 0.0 103/mcL Invalid Interpretation Code 0.0 - 0.7 10^3/mcL AH Workflow SS Eosinophils/100 WBC (Bld) 0.6 % Invalid Interpretation Code 0.0 - 6.0 % AH Workflow SS Erythrocyte distribution width (RBC) [Ratio] 16.8 % Invalid Interpretation Code 11.5 - 15.5 % AH Workflow SS Hematocrit (Bld) [Volume fraction] 33.0 % Invalid Interpretation Code 34.0 - 46.0 % AH Workflow SS Hemoglobin (Bld) [Mass/Vol] 10.7 G/dL Invalid Interpretation Code 12.0 - 16.0 G/dL AH Workflow SS Lymphocytes (Bld) [#/Vol] 2.6 103/mcL Invalid Interpretation Code 0.9 - 4.3 10^3/mcL AH Workflow SS Lymphocytes/100 WBC (Bld) 35.1 % Invalid Interpretation Code 20.0 - 40.0 % AH Workflow SS MCH (RBC) [Entitic mass] 25.8 pg Invalid Interpretation Code 27.0 - 33.0 pg AH Workflow SS MCHC 32.5 G/dL Invalid Interpretation Code 32.0 - 36.0 G/dL AH Workflow SS MCV (RBC) [Entitic vol] 79.3 fL Invalid Interpretation Code 80.0 - 99.0 fL AH Workflow SS Monocytes (Bld) [#/Vol] 0.6 103/mcL Invalid Interpretation Code 0.1 - 1.4 10^3/mcL AH Workflow SS Monocytes/100 WBC (Bld) 7.9 % Invalid Interpretation Code 2.0 - 13.0 % AH Workflow SS Neutrophils (Bld) [#/Vol] 4.2 103/mcL Invalid Interpretation Code 2.3 - 8.1 10^3/mcL AH Workflow SS Neutrophils/100 WBC (Bld) 56.1 % Invalid Interpretation Code 50.0 - 75.0 % AH Workflow SS Platelet mean volume (Bld) [Entitic vol] 8.4 fL Invalid Interpretation Code 6.6 - 10.5 fL AH Workflow SS Platelets (Bld) [#/Vol] 224 103/mcL Invalid Interpretation Code 150 - 450 10^3/mcL AH Workflow SS RBC (Bld) [#/Vol] 4.16 106/mcL Invalid Interpretation Code 4.10 - 5.30 10^6/mcL AH Workflow SS WBC (Bld) [#/Vol] 7.5 103/mcL Invalid Interpretation Code 4.5 - 10.8 10^3/mcL AH Workflow SS RPRon 05-12-2023 Reagin Ab RPR Ql (S) Non-Reactive Normal Non-[place] ctiv e [facility] ([place]) Comment on above: Result Comment: The RPR test is a non-treponemal assay useful as an aid in the diagnosis of primary and secondary syphilis. It converts to positive generally within 2 weeks after the appearance of a lesion. This test is also useful for monitoring response to antibiotic therapy. A positive RPR screening test will be followed by the FTA ABS test. False positive RPR tests may occur in 1) patients with underlying autoimmune disorders, 2) elderly patients, 3) , and 4) other conditions with abnormal serum globulins. Performed By: #### R MN, ABOGEL, ADIFF, ANEU, CBC, ABSGEL #### [address] [address] .Auto Diffon 05-11-2023 Basophil, Absolute 0.1 10 3/mcL Normal 0.0-0.3 [facility] ([place]) Comment on above: Performed By: #### R MN, ABOGEL, ADIFF, ANEU, CBC, ABSGEL #### [address] [address] Basophils/100 WBC (Bld) 1.1 % Normal 0.0-2.5 A [facility] ([place]) Comment on above: Performed By: #### R MN, ABOGEL, ADIFF, ANEU, CBC, ABSGEL #### [address] [address] Eosinophil, Absolute 0.1 10 3/mcL Normal 0.0-0.7 [facility] ([place]) Comment on above: Performed By: #### R MN, ABOGEL, ADIFF, ANEU, CBC, ABSGEL #### [address] [address] Eosinophils/100 WBC (Bld) 0.6 % Normal 0.0-6.0 [facility] ([place]) Comment on above: Performed By: #### R MN, ABOGEL, ADIFF, ANEU, CBC, ABSGEL #### [address] [address] Lymphocyte, Absolute 2.7 10 3/mcL Normal 0.9-4.3 [facility] ([place]) Comment on above: Performed By: #### R MN, ABOGEL, ADIFF, ANEU, CBC, ABSGEL #### [address] [address] Lymphocytes/100 WBC (Bld) 30.8 % Normal 20.0-40.0 [facility] ([place]) Comment on above: Performed By: #### R MN, ABOGEL, ADIFF, ANEU, CBC, ABSGEL #### [address] [address] Monocyte, Absolute 0.8 10 3/mcL Normal 0.1-1.4 [facility] ([place]) Comment on above: Performed By: #### R MN, ABOGEL, ADIFF, ANEU, CBC, ABSGEL #### [address] [address] Monocytes/100 WBC (Bld) 8.7 % Normal 2.0-13.0 A [facility] ([place]) Comment on above: Performed By: #### R MN, ABOGEL, ADIFF, ANEU, CBC, ABSGEL #### [address] [address] Neutrophils/100 WBC (Bld) 58.8 % Normal 50.0-75.0 [facility] ([place]) Comment on above: Performed By: #### R MN, ABOGEL, ADIFF, ANEU, CBC, ABSGEL #### [address] [address] .NEUABSon 05-11-2023 Neutrophil, Absolute 5.1 10 3/mcL Normal 2.3-8.1 [facility] ([place]) Comment on above: Performed By: #### R MN, ABOGEL, ADIFF, ANEU, CBC, ABSGEL #### [address] [address] ABO/Rh (Gel)on 05-11-2023 ABO/Rh Interp Positive Invalid Interpretation Code [facility] ([place]) Comment on above: Performed By: #### R MN, ABOGEL, ADIFF, ANEU, CBC, ABSGEL #### [address] [address] ABS (Gel)on 05-11-2023 ABSC Interp (Gel) Negative Normal [facility] ([place]) Comment on above: Performed By: #### R MN, ABOGEL, ADIFF, ANEU, CBC, ABSGEL #### [address] [address] CBCon 05-11-2023 Erythrocyte distribution width (RBC) [Ratio] 16.8 % High 11.5-15.5 [facility] ([place]) Comment on above: Performed By: #### R MN, ABOGEL, ADIFF, ANEU, CBC, ABSGEL #### [place] [id number] Hematocrit (Bld) [Volume fraction] 36.1 % Normal 34.0-46.0 [facility] ([place]) Comment on above: Performed By: #### R MN, ABOGEL, ADIFF, ANEU, CBC, ABSGEL #### [place] [id number] Hgb 11.8 G/dL Low 12.0-16.0 [facility] ([place]) Comment on above: Performed By: #### R MN, ABOGEL, ADIFF, ANEU, CBC, ABSGEL #### [address] [address] MCH (RBC) [Entitic mass] 25.5 pg Low 27.0-33.0 [facility] ([place]) Comment on above: Performed By: #### R MN, ABOGEL, ADIFF, ANEU, CBC, ABSGEL #### [place] [id number] MCHC 32.6 G/dL Normal 32.0-36.0 [facility] ([place]) Comment on above: Performed By: #### R MN, ABOGEL, ADIFF, ANEU, CBC, ABSGEL #### [place] [id number] MCV (RBC) [Entitic vol] 78.4 fL Low 80.0-99.0 A [facility] ([place]) Comment on above: Performed By: #### R MN, ABOGEL, ADIFF, ANEU, CBC, ABSGEL #### [place] [id number] Platelet 275 10 3/mcL Normal 150-450 [facility] ([place]) Comment on above: Performed By: #### R MN, ABOGEL, ADIFF, ANEU, CBC, ABSGEL #### [address] [address] Platelet mean volume (Bld) [Entitic vol] 8.8 fL Normal 6.6-10.5 [facility] ([place]) Comment on above: Performed By: #### R MN, ABOGEL, ADIFF, ANEU, CBC, ABSGEL #### [address] [address] RBC 4.61 10 6/mcL Normal 4.10-5.30 [facility] ([place]) Comment on above: Performed By: #### R MN, ABOGEL, ADIFF, ANEU, CBC, ABSGEL #### [address] [address] WBC 8.7 10 3/mcL Normal 4.5-10.8 [facility] ([place]) Comment on above: Performed By: #### R MN, ABOGEL, ADIFF, ANEU, CBC, ABSGEL #### [address] [address] LABORATORYOrdered By: Jazlyn Schulz on 05-11-2023 ABO and Rh group Nom (Bld) Blood group B Rh(D) positive Invalid Interpretation Code AH BB Auto SS Blood group antibody screen Ql Negative ABSC (05/11/23 1:45 AM) Invalid Interpretation Code AH BB Auto SS LABORATORYOrdered By: SYSTEM SYSTEM on 05-11-2023 Basophils (Bld) [#/Vol] 0.1 103/mcL Invalid Interpretation Code 0.0 - 0.3 10^3/mcL AH Workflow SS Basophils/100 WBC (Bld) 1.1 % Invalid Interpretation Code 0.0 - 2.5 % AH Workflow SS Eosinophils (Bld) [#/Vol] 0.1 103/mcL Invalid Interpretation Code 0.0 - 0.7 10^3/mcL AH Workflow SS Eosinophils/100 WBC (Bld) 0.6 % Invalid Interpretation Code 0.0 - 6.0 % AH Workflow SS Erythrocyte distribution width (RBC) [Ratio] 16.8 % Invalid Interpretation Code 11.5 - 15.5 % AH Workflow SS Hematocrit (Bld) [Volume fraction] 36.1 % Invalid Interpretation Code 34.0 - 46.0 % Workflow SS Hemoglobin (Bld) [Mass/Vol] 11.8 G/dL Invalid Interpretation Code 12.0 - 16.0 G/dL AH Workflow SS Lymphocytes (Bld) [#/Vol] 2.7 103/mcL Invalid Interpretation Code 0.9 - 4.3 10^3/mcL Workflow SS Lymphocytes/100 WBC (Bld) 30.8 % Invalid Interpretation Code 20.0 - 40.0 % Workflow SS MCH (RBC) [Entitic mass] 25.5 pg Invalid Interpretation Code 27.0 - 33.0 pg AH Workflow SS MCHC 32.6 G/dL Invalid Interpretation Code 32.0 - 36.0 G/dL Workflow SS MCV (RBC) [Entitic vol] 78.4 fL Invalid Interpretation Code 80.0 - 99.0 fL Workflow SS Monocytes (Bld) [#/Vol] 0.8 103/mcL Invalid Interpretation Code 0.1 - 1.4 10^3/mcL Workflow SS Monocytes/100 WBC (Bld) 8.7 % Invalid Interpretation Code 2.0 - 13.0 % Workflow SS Neutrophils (Bld) [#/Vol] 5.1 103/mcL Invalid Interpretation Code 2.3 - 8.1 10^3/mcL Workflow SS Neutrophils/100 WBC (Bld) 58.8 % Invalid Interpretation Code 50.0 - 75.0 % Workflow SS Platelet mean volume (Bld) [Entitic vol] 8.8 fL Invalid Interpretation Code 6.6 - 10.5 fL Workflow SS Platelets (Bld) [#/Vol] 275 103/mcL Invalid Interpretation Code 150 - 450 10^3/mcL Workflow SS RBC (Bld) [#/Vol] 4.61 106/mcL Invalid Interpretation Code 4.10 - 5.30 10^6/mcL Workflow SS WBC (Bld) [#/Vol] 8.7 103/mcL Invalid Interpretation Code 4.5 - 10.8 10^3/mcL Workflow SS LABORATORYOrdered By: Tatiana Brizeula on 05-11-2023 Reagin Ab RPR Ql (S) Non-Reactive 1 (05/11/23 1:45 AM) Invalid Interpretation Code Non-Reactiv e AH Man Viro/Sero SS Comment on above: Interpretive Data: T he RPR test is a non-treponemal assay useful as an aid in the diagnosis of primary and secondary syphilis. It converts to positive generally within 2 weeks after the appearance of a lesion. This test is also useful for monitoring response to antibiotic therapy. A positive RPR screening test will be followed by the FTA ABS test. False positive RPR tests may occur in 1) patients with underlying autoimmune disorders, 2) elderly patients, 3) , and 4) other conditions with abnormal serum globulins. LABORATORYOrdered By: Samara Lima on 05-11-2023 ABO and Rh group Nom (Bld) B positive (05/11/23 1:34 AM) [facility] Work Phone: Group B Strep Date Performed [id number] [facility] Work Phone: Group B Strep, External Negative (05/11/23 1:34 AM) [facility] Work Phone: Hepatitis B Date Performed [id number] [facility] Work Phone: Hepatitis B, External Negative (05/11/23 1:34 AM) [facility] Work Phone: HIV Antibodies, External Negative (05/11/23 1:34 AM) [facility] Work Phone: RPR, External Nonreactive (05/11/23 1:34 AM) [facility] Work Phone: Rubella, External Immune (05/11/23 1:34 AM) [facility] Work Phone: GBSPCRon 04-20-2023 Group B Strep (PCR) Negative Normal Negative [facility] ([place]) Comment on above: Result Comment: Note s [id number] Performed By: #### [facility] #### [facility] [address] [place], [place] [address] Group B Strep PCR Int Normal [facility] ([place]) Comment on above: Result Comment: Grou p B Streptococcus DNA not detected by Real-Time Polymerase Chain Reaction (PCR). A negative result does rule out the possibility of Group B Streptococcus. False Negative results may occur when Group B Streptococcus concentration is below the level of detection. If the patient has signs or symptoms of infection, other laboratory tests and clinical information should be used to confirm the negative result. This test is not intended to differentiate carriers of Group B Streptococcus from those with Streptococcus disease. See Below Performed By: #### [facility] #### [facility] [address] [place], [place] [address] US ABDOMEN COMPLETEon 2021 Patient Name: CARLOS FRANCOIS Ultrasound ACCESSION EXAM DATE/TIME PROCEDURE ORDERING PROVIDER [id number] 06/07/2022 09:15 EDT US Abdomen Complete MD TYRONE, SYLVIA SANCHEZ CPT code 73315 Reason For Exam (US Abdomen Complete) liver cyst Report CLINICAL INFORMATION: Hepatic cysts Sonogram of the abdomen is performed. Comparison ultrasound from 11/15/[address] from 10/28/2021 The liver is normal in echotexture except for several cysts, largest 2.1 cm with septation. No hyper or hypo echoic masses are seen. There is no intrahepatic biliary ductal dilatation. The gallbladder is normally distended. There are no gallstones or wall thickening, or pericholecystic fluid collections with two small polyps each measuring 5 mm.. The common bile duct diameter of 2.6 mm is within normal limits. The pancreas is homogenous in echo texture. No obvious pancreatic mass or peripancreatic fluid collection is identified (the pancreas is partially obscured by bowel gas). Cursory examination of the kidneys is performed. The right renal length is 13.0 cm. The left renal length is 11.9cm. There is no hydronephrosis with bilateral small cortical cysts. There is no ascites. The spleen is unremarkable The visualized portions of the aorta and inferior vena cava are within normal limits. IMPRESSION: 1. Several small hepatic and bilateral renal cysts 2. Two small gallbladder 5 mm polyps unchanged since last exam of 11/15/2021 Report Dictated on --- Final --- Dictating Physician: MD HERNANDEZ WILLIAM Signed Date and Time: 06/07/2022 10:22 am Signed by: MD HERNANDEZ WILLIAM Transcribed Date and Time: 06/07/2022 10:23 [facility] Herb Hernandez MD - 06/07/2022 Patient Name: CARLOS FRANCOIS Ultrasound ACCESSION EXAM DATE/TIME PROCEDURE ORDERING PROVIDER [id number] 06/07/2022 09:15 EDT US Abdomen Complete MD TYRONE, SYLVIA SANCHEZ CPT code 61638 Reason For Exam (US Abdomen Complete) liver cyst Report CLINICAL INFORMATION: Hepatic cysts Sonogram of the abdomen is performed. Comparison ultrasound from 11/15/[address] from 10/28/2021 The liver is normal in echotexture except for several cysts, largest 2.1 cm with septation. No hyper or hypo echoic masses are seen. There is no intrahepatic biliary ductal dilatation. The gallbladder is normally distended. There are no gallstones or wall thickening, or pericholecystic fluid collections with two small polyps each measuring 5 mm.. The common bile duct diameter of 2.6 mm is within normal limits. The pancreas is homogenous in echo texture. No obvious pancreatic mass or peripancreatic fluid collection is identified (the pancreas is partially obscured by bowel gas). Cursory examination of the kidneys is performed. The right renal length is 13.0 cm. The left renal length is 11.9cm. There is no hydronephrosis with bilateral small cortical cysts. There is no ascites. The spleen is unremarkable The visualized portions of the aorta and inferior vena cava are within normal limits. IMPRESSION: 1. Several small hepatic and bilateral renal cysts 2. Two small gallbladder 5 mm polyps unchanged since last exam of 11/15/2021 Report Dictated on --- Final --- Dictating Physician: MD HERNANDEZ WILLIAM Signed Date and Time: 06/07/2022 10:22 am Signed by: MD HERNANDEZ WILLIAM Transcribed Date and Time: 06/07/2022 10:23 [facility] Work Phone: Radiology Study observation (narrative) [facility] Work Phone: US ABDOMEN COMPLETEOrdered B y: Herb Hernandez on 06-07-2022 [facility] Work Phone: US Abdomen Completeon 2021 US Abdomen Complete Patient Name: CARLOS FRANCOISN: [id number] Ultrasound ACCESSION EXAM DATE/TIME PROCEDURE ORDERING PROVIDER [id number] 06/07/2022 09:15 EDT US Abdomen Complete MD TYRONE, SYLVIA SANCHEZ CPT code 64294 Reason For Exam (US Abdomen Complete) liver cyst Report CLINICAL INFORMATION: Hepatic cysts Sonogram of the abdomen is performed. Comparison ultrasound from 11/15/[address] from 10/28/2021 The liver is normal in echotexture except for several cysts, largest 2.1 cm with septation. No hyper or hypo echoic masses are seen. There is no intrahepatic biliary ductal dilatation. The gallbladder is normally distended. There are no gallstones or wall thickening, or pericholecystic fluid collections with two small polyps each measuring 5 mm.. The common bile duct diameter of 2.6 mm is within normal limits. The pancreas is homogenous in echo texture. No obvious pancreatic mass or peripancreatic fluid collection is identified (the pancreas is partially obscured by bowel gas). Cursory examination of the kidneys is performed. The right renal length is 13.0 cm. The left renal length is 11.9cm. There is no hydronephrosis with bilateral small cortical cysts. There is no ascites. The spleen is unremarkable The visualized portions of the aorta and inferior vena cava are within normal limits. IMPRESSION: 1. Several small hepatic and bilateral renal cysts 2. Two small gallbladder 5 mm polyps unchanged since last exam of 11/15/2021 Report Dictated on Final Dictating Physician: MD HERNANDEZ WILLIAM Signed Date and Time: 06/07/2022 10:22 am Signed by: MD HERNANDEZ WILLIAM Transcribed Date and Time: 06/07/2022 10:23 Normal [facility] Spirometry Pre and Post Bron chodilatoron 11-15-2021 Name: CARLOS FRANCOIS PatientID: [id number] Gender: Female Birthdate: 1990 Study Date: 11/15/2021 11:02:55 Age: 30 Race: White or Height: 70.0 in, 177.8 cm Weight: 190.0 lbs, 86.4 kg Smoke Status: Never Pack Years: Tbco Prod: Cigarettes Ordering Physician: [id number] Interpreting Physician: [id number] Medical Data Entry Clerk: PERRI Caruso Location: [facility] Diagnosis: COUGH Spirometry Units Pred PreDrug Pre%Pred Post Post%Pred %Change FVC L,btps 4.53 5.07 112. 5.14 113. 1. FEV1 L,btps 3.75 2.93 78. 3.36 90. 15. FEV1/FVC (%) % 84. 58. 69. 65. 78. 13. [id number]% L/s 3.76 1.54 41. 2.18 58. 42. FEFmax L/s 7.98 5.96 75. 6.17 77. 4. MVV in,btps 122.90 Lung Volumes (Body Box) Units Pred PreDrug Pre%Pred TLC L,btps 6.26 VC L,btps 4.53 IC L,btps 3.25 FRC L,btps 3.01 ERV L,btps 1.28 RV L,btps 1.73 RV/TLC (%) % 28. VTG L,btps RAW H2O/L/s 1.26 SGaw cmH2O/L 0.26 Diffusion (DLCO) Units Pred PreDrug Pre%Pred DLCO ml/min/mmHg,stpd 29.84 DLCOHb ml/min/mmHg,stpd 29.84 VAsb L,btps 6.12 D/VAsb ml/min/mmHg/L,stpd 4.88 D/VAsbHb ml/min/mmHg/L,stpd 4.88 VInsp L Hgb g/dl COHb % Lung Mechanics Units Pred PreDrug Pre%Pred PImax /MIP cmH2O -83.24 PEmax /MEP cmH2O 101.29 HOSPITAL PHARMACY DIRECTOR NOTES Good Patient effort. Consistent results. Best results reported.Calibration check passed with acceptable system performance. The patient performed all pre-test requirements. Spirometry best effort, met acceptability and repeatability guidelines. Pt has a dry npc daily. Pt denies having sob. Pt was given an Albuterol MDI x4 puffs via a spacer that was instructed and dispensed. 81014- PRE/POST BD Tests to perform: [id number] - SPIROMETRY WITH BRONCHODILATOR PHYSICIAN INTERPRETATION Spirometry shows a mild obstruction with a positive bronchodilator response. [facility] Kamron Soria MD - 11/15/2021 Name: CARLOS FRANCOIS PatientID: [id number] Gender: Female Birthdate: 1990 Study Date: 11/15/2021 11:02:55 Age: 30 Race: White or Height: 70.0 in, 177.8 cm Weight: 190.0 lbs, 86.4 kg Smoke Status: Never Pack Years: Tbco Prod: Cigarettes Ordering Physician: [id number] Interpreting Physician: [id number] Medical Data Entry Clerk: PERRI Testing Location: [facility] Diagnosis: COUGH Spirometry Units Pred PreDrug Pre%Pred Post Post%Pred %Change FVC L,btps 4.53 5.07 112. 5.14 113. 1. FEV1 L,btps 3.75 2.93 78. 3.36 90. 15. FEV1/FVC (%) % 84. 58. 69. 65. 78. 13. [id number]% L/s 3.76 1.54 41. 2.18 58. 42. FEFmax L/s 7.98 5.96 75. 6.17 77. 4. MVV in,btps 122.90 Lung Volumes (Body Box) Units Pred PreDrug Pre%Pred TLC L,btps 6.26 VC L,btps 4.53 IC L,btps 3.25 FRC L,btps 3.01 ERV L,btps 1.28 RV L,btps 1.73 RV/TLC (%) % 28. VTG L,btps RAW H2O/L/s 1.26 SGaw cmH2O/L 0.26 Diffusion (DLCO) Units Pred PreDrug Pre%Pred DLCO ml/min/mmHg,stpd 29.84 DLCOHb ml/min/mmHg,stpd 29.84 VAsb L,btps 6.12 D/VAsb ml/min/mmHg/L,stpd 4.88 D/VAsbHb ml/min/mmHg/L,stpd 4.88 VInsp L Hgb g/dl COHb % Lung Mechanics Units Pred PreDrug Pre%Pred PImax /MIP cmH2O -83.24 PEmax /MEP cmH2O 101.29 HOSPITAL PHARMACY DIRECTOR NOTES Good Patient effort. Consistent results. Best results reported.Calibration check passed with acceptable system performance. The patient performed all pre-test requirements. Spirometry best effort, met acceptability and repeatability guidelines. Pt has a dry npc daily. Pt denies having sob. Pt was given an Albuterol MDI x4 puffs via a spacer that was instructed and dispensed. 72707- PRE/POST BD Tests to perform: [id number] - SPIROMETRY WITH BRONCHODILATOR PHYSICIAN INTERPRETATION Spirometry shows a mild obstruction with a positive bronchodilator response. [facility] Work Phone: Spirometry Pre and Post Bron chodilatorOrdered By: Kamron Diaz on 11-15-2021 [facility] Work Phone: US ABDOMEN COMPLETEon 2021 Patient Name: CARLOS FRANCOIS Ultrasound ACCESSION EXAM DATE/TIME PROCEDURE ORDERING PROVIDER [id number] 11/15/2021 10:49 EDT US Abdomen Complete MD TYRONE, SYLVIA SANCHEZ CPT code 06515 Reason For Exam (US Abdomen Complete) liver cyst Report EXAM TYPE: Ultrasound abdomen complete. CLINICAL HISTORY: liver cyst COMPARISON: None. TECHNIQUE: Grayscale sonographic images were obtained of the abdomen. Color Doppler was utilized. FINDINGS: Liver: The liver is normal in contour and echogenicity. Numerous anechoic simple appearing cysts are seen within the liver measuring up to 1.7 cm in the right hepatic lobe. No intra or extrahepatic biliary ductal dilatation is identified. The common bile duct is appropriate in size for the patient's age and measures 2 mm in diameter. Gallbladder: The gallbladder demonstrates two nonmobile small hyperechoic foci along the wall measuring 4 mm and 5 mm in size. No gallbladder wall thickening, pericholecystic fluid, or gallstones. No sonographic Garcia sign was elicited. Kidneys: Both kidneys are normal in contour, echogenicity, and size with no hydronephrosis or shadowing renal calculi. The right kidney measures 11.6 cm in length. The left kidney measures 12.6 cm in length. A few tiny anechoic simple appearing cysts are seen bilaterally measuring up to 1.2 cm and the left kidney. Accessory structures: The spleen is nonenlarged. The visualized pancreas is normal in appearance. The proximal aorta and IVC are normal in caliber. IMPRESSION: 1. Numerous simple appearing cysts are seen in the liver measuring up to 1.7 cm. 2. A few simple appearing cysts are seen in the kidneys measuring up to 1.2 cm. 3. Two nonmobile hyperechoic foci are seen along the wall of the gallbladder measuring up to 5 mm, likely polyps. Recommend follow-up ultrasound in six months to evaluate stability. Ultrasound Report Report Dictated on --- Final --- Dictating Physician: MD PORTILLO JAMES Signed Date and Time: 11/15/2021 11:21 am Signed by: MD PORTILLO JAMES Transcribed Date and Time: 11/15/2021 11:22 [facility] RAD Haim Portillo MD - 11/15/2021 Patient Name: CARLOS FRANCOIS Ultrasound ACCESSION EXAM DATE/TIME PROCEDURE ORDERING PROVIDER [id number] 11/15/2021 10:49 EDT US Abdomen Complete MD HANSEN MATTHEW PATRICK CPT code 36682 Reason For Exam (US Abdomen Complete) liver cyst Report EXAM TYPE: Ultrasound abdomen complete. CLINICAL HISTORY: liver cyst COMPARISON: None. TECHNIQUE: Grayscale sonographic images were obtained of the abdomen. Color Doppler was utilized. FINDINGS: Liver: The liver is normal in contour and echogenicity. Numerous anechoic simple appearing cysts are seen within the liver measuring up to 1.7 cm in the right hepatic lobe. No intra or extrahepatic biliary ductal dilatation is identified. The common bile duct is appropriate in size for the patient's age and measures 2 mm in diameter. Gallbladder: The gallbladder demonstrates two nonmobile small hyperechoic foci along the wall measuring 4 mm and 5 mm in size. No gallbladder wall thickening, pericholecystic fluid, or gallstones. No sonographic Garcia sign was elicited. Kidneys: Both kidneys are normal in contour, echogenicity, and size with no hydronephrosis or shadowing renal calculi. The right kidney measures 11.6 cm in length. The left kidney measures 12.6 cm in length. A few tiny anechoic simple appearing cysts are seen bilaterally measuring up to 1.2 cm and the left kidney. Accessory structures: The spleen is nonenlarged. The visualized pancreas is normal in appearance. The proximal aorta and IVC are normal in caliber. IMPRESSION: 1. Numerous simple appearing cysts are seen in the liver measuring up to 1.7 cm. 2. A few simple appearing cysts are seen in the kidneys measuring up to 1.2 cm. 3. Two nonmobile hyperechoic foci are seen along the wall of the gallbladder measuring up to 5 mm, likely polyps. Recommend follow-up ultrasound in six months to evaluate stability. Ultrasound Report Report Dictated on --- Final --- Dictating Physician: MD PORTILLO JAMES Signed Date and Time: 11/15/2021 11:21 am Signed by: MD PORTILLO JAMES Transcribed Date and Time: 11/15/2021 11:22 [facility] Work Phone: Radiology Study observation (narrative) [facility] Work Phone: US ABDOMEN COMPLETEOrdered B y: Haim Portillo on 11-15-2021 [facility] Work Phone: US Abdomen Completeon 2021 US Abdomen Complete Patient Name: CARLOS FRANCOIS Ultrasound ACCESSION EXAM DATE/TIME PROCEDURE ORDERING PROVIDER [id number] 11/15/2021 10:49 EDT US Abdomen Complete MD TYRONE, SYLVIA SANCHEZ CPT code 68886 Reason For Exam (US Abdomen Complete) liver cyst Report EXAM TYPE: Ultrasound abdomen complete. CLINICAL HISTORY: liver cyst COMPARISON: None. TECHNIQUE: Grayscale sonographic images were obtained of the abdomen. Color Doppler was utilized. FINDINGS: Liver: The liver is normal in contour and echogenicity. Numerous anechoic simple appearing cysts are seen within the liver measuring up to 1.7 cm in the right hepatic lobe. No intra or extrahepatic biliary ductal dilatation is identified. The common bile duct is appropriate in size for the patient's age and measures 2 mm in diameter. Gallbladder: The gallbladder demonstrates two nonmobile small hyperechoic foci along the wall measuring 4 mm and 5 mm in size. No gallbladder wall thickening, pericholecystic fluid, or gallstones. No sonographic Garcia sign was elicited. Kidneys: Both kidneys are normal in contour, echogenicity, and size with no hydronephrosis or shadowing renal calculi. The right kidney measures 11.6 cm in length. The left kidney measures 12.6 cm in length. A few tiny anechoic simple appearing cysts are seen bilaterally measuring up to 1.2 cm and the left kidney. Accessory structures: The spleen is nonenlarged. The visualized pancreas is normal in appearance. The proximal aorta and IVC are normal in caliber. IMPRESSION: 1. Numerous simple appearing cysts are seen in the liver measuring up to 1.7 cm. 2. A few simple appearing cysts are seen in the kidneys measuring up to 1.2 cm. 3. Two nonmobile hyperechoic foci are seen along the wall of the gallbladder measuring up to 5 mm, likely polyps. Recommend follow-up ultrasound in six months to evaluate stability. Ultrasound Report Report Dictated on Final Dictating Physician: MD PORTILLO JAMES Signed Date and Time: 11/15/2021 11:21 am Signed by: MD PORTILLO JAMES Transcribed Date and Time: 11/15/2021 11:22 Normal [facility] CT Chest w/o Contraston 10-18 CT Chest w/o Contrast Patient Name: CARLOS HOFFMAN Computed Tomography ACCESSION EXAM DATE/TIME PROCEDURE ORDERING PROVIDER [id number] 10/28/2021 11:[address] Thorax w/o Contrast MD TYRONE, SYLVIA SANCHEZ CPT code 59169 Reason For Exam (CT Thorax w/o Contrast) abnormal x-ray Report CT CHEST WITHOUT IV CONTRAST CLINICAL INDICATION: abnormal x-ray TECHNIQUE: CT scan of the chest without IV contrast. Multiplanar reformations. COMPARISON: Chest x-ray 2 view, 3 October,. FINDINGS: Mediastinal evaluation limited due to lack of IV contrast. The lungs show densely calcified granuloma in the superolateral aspect of left lower lobe corresponding to comparison study a few, smaller and calcified granulomas also noted along the left major fissure. No discrete parenchymal mass, focal consolidation or pleural effusion. No apparent pneumothorax. Mediastinal structures are grossly unremarkable. No apparent aneurysm or pseudoaneurysm. No significant lymph node enlargement or axillary adenopathy. Multiple, small and rounded hypoattenuating foci scattered in the liver, largest in the medial segment measuring 1.4 cm, probably representing cysts or hemangiomas. Subcentimeter cyst in left kidney. Remainder of visualized upper abdomen grossly unremarkable. IMPRESSION: 1. Sequelae of old granulomatous disease corresponding to density reported on comparison study. 2. No other acute findings. Report Dictated on Workstation: [id number] Final Dictating Physician: MD MIDDLETON WENDELL Signed Date and Time: 10/30/2021 6:58 pm Signed by: MD MIDDLETON WENDELL Transcribed Date and Time: 10/30/2021 6:59 Normal [facility] CR Chest PA/LATon 10-20-2021 CR Chest PA/LAT Patient Name: CARLOS FRANCOIS Diagnostic Radiology ACCESSION EXAM DATE/TIME PROCEDURE ORDERING PROVIDER [id number] 10/20/2021 11:25 EST CR Chest PA and LAT MD HANSEN MATTHEW PATRICK CPT code 60762 Reason For Exam (CR Chest PA and LAT) cough Report EXAMINATION: XR chest PA and lateral. EXAM DATE and TIME: 10/20/2021 11:25 AM EST INDICATION: cough ADDITIONAL INFORMATION: 30-year-old female with cough presents for evaluation COMPARISON: None TECHNIQUE: Frontal and lateral views of the chest were obtained. FINDINGS: The cardiomediastinal silhouette is within normal limits. Ovoid density projects over the left upper lobe. No pleural effusion or pneumothorax. No acute osseous abnormality is demonstrated. IMPRESSION: Ovoid density projecting over the left upper lobe. Recommend further evaluation with CT the chest. A notification was communicated to SYLVIA HANSEN via the [employer] Critical Result system on 10/20/2021 1:33 PM EST, Message ID [id number]. Report Dictated on Final Dictating Physician: MD BEDOYA CHRISTOPHER Signed Date and Time: 10/20/2021 1:34 pm Signed by: MD BEDOYA CHRISTOPHER Transcribed Date and Time: 10/20/2021 1:35 Normal [facility] XR CHEST (2 VW)on 10-20-2021 Patient Name: CARLOS FRANCOIS Diagnostic Radiology ACCESSION EXAM DATE/TIME PROCEDURE ORDERING PROVIDER [id number] 10/20/2021 11:25 EST CR Chest PA & LAT MD HANSEN MATTHEW PATRICK CPT code 92081 Reason For Exam (CR Chest PA & LAT) cough Report EXAMINATION: XR chest PA and lateral. EXAM DATE & TIME: 10/20/2021 11:25 AM EST INDICATION: cough ADDITIONAL INFORMATION: 30-year-old female with cough presents for evaluation COMPARISON: None TECHNIQUE: Frontal and lateral views of the chest were obtained. FINDINGS: The cardiomediastinal silhouette is within normal limits. Ovoid density projects over the left upper lobe. No pleural effusion or pneumothorax. No acute osseous abnormality is demonstrated. IMPRESSION: Ovoid density projecting over the left upper lobe. Recommend further evaluation with CT the chest. A notification was communicated to SYLVIA HANSEN via the [employer] Critical Result system on 10/20/2021 1:33 PM EST, Message ID [id number]. Report Dictated on --- Final --- Dictating Physician: MD BEDOYA CHRISTOPHER Signed Date and Time: 10/20/2021 1:34 pm Signed by: MD BEDOYA CHRISTOPHER Transcribed Date and Time: 10/20/2021 1:35 [facility] RAD Keyon Bedoya MD - 10/20/2021 Patient Name: CARLOS FRANCOIS Diagnostic Radiology ACCESSION EXAM DATE/TIME PROCEDURE ORDERING PROVIDER [id number] 10/20/2021 11:25 EST CR Chest PA & LAT MD HANSEN MATTHEW PATRICK CPT code 61320 Reason For Exam (CR Chest PA & LAT) cough Report EXAMINATION: XR chest PA and lateral. EXAM DATE & TIME: 10/20/2021 11:25 AM EST INDICATION: cough ADDITIONAL INFORMATION: 30-year-old female with cough presents for evaluation COMPARISON: None TECHNIQUE: Frontal and lateral views of the chest were obtained. FINDINGS: The cardiomediastinal silhouette is within normal limits. Ovoid density projects over the left upper lobe. No pleural effusion or pneumothorax. No acute osseous abnormality is demonstrated. IMPRESSION: Ovoid density projecting over the left upper lobe. Recommend further evaluation with CT the chest. A notification was communicated to SYLVIA MCGEERICKIEKAITLYN via the [employer] Critical Result system on 10/20/2021 1:33 PM EST, Message ID [id number]. Report Dictated on --- Final --- Dictating Physician: MD BEDOYA CHRISTOPHER Signed Date and Time: 10/20/2021 1:34 pm Signed by: MD BEDOYA CHRISTOPHER Transcribed Date and Time: 10/20/2021 1:35 [facility] Work Phone: Radiology Study observation (narrative) [facility] Work Phone: XR CHEST (2 VW)Ordered By: Piper Bedoya on 10-20-2021 [facility] Work Phone: Vital Signs Date Time Vital Sign Value Performing Clinician Facility 05-18-2025 13:59-0400 Body weight 87.[address] Kuldeep London MD Work Phone: [facility] 05-18-2025 13:59-0400 Diastolic blood pressure 76 mm[Hg] Dr. Kuldeep London MD Work Phone: [facility] 05-18-2025 13:59-0400 Heart rate 62 /min Dr. Kuldeep London MD Work Phone: [facility] 05-18-2025 13:59-0400 Respiratory rate 17 /min Dr. Kuldeep London MD Work Phone: [facility] 05-18-2025 13:59-0400 SaO2% (BldA) [Mass fraction] 100 % Dr. Kuldeep London MD Work Phone: [facility] 05-18-2025 13:59-0400 Systolic blood pressure 115 mm[Hg] Dr. Kuldeep London MD Work Phone: [facility] 05-12-2023 08:13-0400 Body temperature 98.42 [degF] DR SALIMA DHILLON MD [address] [place] [address] 05-12-2023 08:13-0400 Diastolic Blood Pressure Non-Invasive [address] SALIMA DHILLON MD [facility] 05-12-2023 08:13-0400 Heart rate 65 /min DR SALIMA DHILLON MD [address] 05-12-2023 08:13-0400 Reason For Taking VItal Signs DR SALIMA DHILLON MD [address] [place] [address] 05-12-2023 08:13-0400 Respiratory rate 18 /min DR SALIMA DHILLON MD [address] [place] [address] 05-12-2023 08:13-0400 Systolic Blood Pressure Non-Invasive [address] SALIMA DHILLON MD [address] [place] [address] 05-12-2023 00:10-0400 Body temperature 98.42 [degF] DR SALIMA DHILLON MD [address] [place] [address] 05-12-2023 00:10-0400 Diastolic Blood Pressure Non-Invasive [address] SALIMA DHILLON MD [address] [place] [address] 05-12-2023 00:10-0400 Heart rate 72 /min DR SALIMA DHILLON MD [address] [place] [address] 05-12-2023 00:10-0400 Respiratory rate 16 /min DR SALIMA DHILLON MD [address] [place] [address] 05-12-2023 00:10-0400 Systolic Blood Pressure Non-Invasive [address] SALIMA DHILLON MD [address] [place] [address] 05-11-2023 20:58-0400 Body temperature 98.6 [degF] DR SALIMA DHILLON MD [facility] 09-22-2023 20:58-0400 Diastolic Blood Pressure Non-Invasive [address] SALIMA DHILLON MD [facility] 05-11-2023 20:58-0400 Heart rate 76 /min DR SALIMA DHILLON MD [facility] 05-11-2023 20:58-0400 Respiratory rate 16 /min DR SALIMA DHILLON MD [address] [place] [address] 05-11-2023 20:58-0400 Systolic Blood Pressure Non-Invasive [address] SALIMA DHILLON MD [address] [place] [address] 05-11-2023 19:45-0400 Reason For Taking VItal Signs DR SALIMA DHILLON MD [address] [place] [address] 05-11-2023 16:31-0400 Reason For Taking VItal Signs DR SALIMA DHILLON MD [address] [place] [address] 05-11-2023 01:34-0400 Body height 177.[address] SALIMA DHILLON MD [address] [place] [address] 05-11-2023 01:34-0400 Body weight 102.[address] SALIMA DHILLON MD [facility] 05-11-2023 01:34-0400 Body weight 32.36 kg/m2 DR SALIMA DHILLON MD [address] [place] [address] 05-11-2023 01:08-0400 Body height 177.[address] SALIMA DHILLON MD [address] [place] [address] 05-11-2023 01:08-0400 Body weight 102.[address] SALIMA DHILLON MD [facility] 05-11-2023 01:08-0400 Body weight 32.36 kg/m2 DR SALIMA DHILLON MD [facility] 05-11-2023 01:04-0400 Heart rate 63 /min DR SALIMA DHILLON MD [facility] 11-15-2021 11:05-0400 Heart rate 62 /min Sylvia Hansen MD Work Phone: [facility] 11-15-2021 11:05-0400 Respiratory rate 16 /min Sylvia Hansen MD Work Phone: [facility] 11-15-2021 11:05-0400 SaO2% (BldA) [Mass fraction] 100 % Sylvia Hansen MD Work Phone: [facility] Encounters Encounter Date Encounter Type Care Provider Facility Start: 05-25-2025 ambulatory [facility] ty:[facility] Start: 05-18-2025 End: 05-18-[address] Kuldeep Pardo MD -[facility] Work Phone: Start: 05-18-2025 End: 05-18-2025 ambulatory Kuldeep Pardo Facility:[facility] Start: 05-12-2025 End: 05-12-[address] Kuldeep London MD Work Phone: [facility] Start: 05-12-2025 End: 05-12-[address] Kuldeep London MD [facility] Work Phone: Start: 05-12-2025 End: 05-12-2025 ambulatory Sylvia Hansen Facility:[facility] Start: 12-08-2024 End: 12-08-2024 ambulatory JOSE ALFREDO DAMON Facility:[facility] Start: 10-29-2024 End: 10-29-2024 Subsequent hospital visit by physician Sylvia Hansen MD Work Phone: [facility] Comment on above: Unspecified lump in the right breast, unspecified quadrant Start: 10-29-2024 End: 10-29-2024 [facility] Start: 04-30-2024 End: 04-30-2024 Subsequent hospital visit by physician Angela Richardson APRN - RADIOTELEGRAPHER Work Phone: [facility] Comment on above: Mastodynia Start: 04-30-2024 End: 04-30-2024 ambulatory ANGELA RICHARDSON [facility] Start: 03-19-2024 End: 06-18-2024 Transcribe Orders Syvlia Hansen MD Work Phone: [facility] Scheduling Start: 05-11-2023 End: 05-12-2023 Evaluation and management of inpatient DR SALIMA DHILLON MD Facility:A Start: 05-11-2023 End: 05-12-2023 Evaluation and management of inpatient DR SALIMA DHILLON MD [facility] Start: 04-18-2023 End: 04-23-2023 ambulatory NONE PHYSICIAN Facility:A Start: 06-07-2022 ambulatory [facility] Start: 06-07-2022 End: 06-07-2022 Subsequent hospital visit by physician Sylvia Hansen MD Work Phone: [facility] Comment on above: Arrived Start: 11-15-2021 ambulatory [facility] Start: 11-15-2021 End: 11-15-2021 Subsequent hospital visit by physician Sylvia Hansen MD Work Phone: [facility] Comment on above: Arrived Start: 10-28-2021 ambulatory [facility] Start: 10-20-2021 ambulatory [facility] Start: 10-20-2021 End: 10-20-2021 Subsequent hospital visit by physician Sylvia Hansen MD Work Phone: [facility] Rad[facility] Procedures Date Procedure Procedure Detail Performing Clinician Start: 05-12-2025 Bilateral mammography Alfonzo London MD Work Phone: Start: 05-12-[address] Kuldeep London MD Work Phone: Start: 10-29-2024 Us breast uni real t susie with image limited Sylvia Hansen MD Work Phone: Start: 04-30-2024 Us breast uni real t susie with image limited Angela Richardson MID LEVEL JAVA DEVELOPER - RADIOTELEGRAPHER Work Phone: Start: 04-30-2024 Diagnostic mammograp hy computer-aided detcj bi Angela Richardson MID LEVEL JAVA DEVELOPER - RADIOTELEGRAPHER Work Phone: Start: 06-07-2022 Us abdominal real ti me w/image documentation Sylvia Hansen MD Work Phone: Start: 11-15-2021 Brncdilat rspse spmt ry pre&post-brncdilat admn Sylvia Hansen MD Work Phone: Start: 11-15-2021 Us abdominal real ti me w/image documentation Sylvia Hansen MD Work Phone: Start: 10-20-2021 Radiologic exam ches t 2 views Sylvia Hansen MD Work Phone: Start: 03-13-2019 Microscopic observat ion [Identifier] in Cervix by Cyto stain Sylvia Hansen MD Work Phone: Repair - action (arnoldo lifier value) DR SALIMA DHILLON MD Comment on above: Repair in OR after d elivery Structure of wisdom tooth (body structure) DR SALIMA DHILLON MD Plan of Treatment Date Care Activity Detail Author Start: 12-18-2063 RSV Immunization for Adults (1 - 1-dose 75+ series) RSV Immunization for Adults (1 - 1-dose 75+ series) [facility] Start: 2048 RSV Immunization age d 60 or older (1 - 1-dose 60+ series) RSV Immunization aged 60 or older (1 - 1-dose 60+ series) [facility] Start: 2038 Zoster Vaccines (1 of 2) Zoster Vacc shalom (1 of 2) [facility] Start: 03-09-2033 DTaP/Tdap/Td Vaccine s (6 - Td or Tdap) DTaP/Tdap/Td Vaccines (6 - Td or Tdap) [facility] Start: 03-25-2030 DTaP/Tdap/Td vaccine (5 - Td or Tdap) DTaP/Tdap/Td vaccine (5 - Td or Tdap) [facility] Start: 05-11-2027 DTaP/Tdap/Td vaccine (4 - Td or Tdap) DTaP/Tdap/Td vaccine (4 - Td or Tdap) [facility] Start: 04-20-2024 COVID-19 Vaccine ( season) COVID-19 Vaccine ( season) [facility] Start: 04-20-2024 Influenza vaccination Influenza Vacc ine (#1) [facility] Start: 03-13-2022 Screening for malign ant neoplasm of cervix [facility] Start: 04-20-2021 Influenza vaccination Flu vaccine (# 1) [facility] Start: 2018 Screening for malign ant neoplasm of cervix [facility] Start: 2009 Screening for malign ant neoplasm of cervix Pap Smear [facility] Start: 12-18-2007 Hepatitis A Vaccines (1 of 2 - Risk 2-dose series) Hepatitis A Vaccines (1 of 2 - Risk 2-dose series) [facility] Start: 2006 Hepatitis C screening [facility] Start: 12-18-2003 HIV screening HIV screen [facility] Start: 2001 Varicella vaccination Varicell a Vaccines (1 of 2 - 13+ 2-dose series) [facility] Start: 2000 Depression Screen Depression Screen [facility] Start: 2000 Depression Screening Depression Scre ening [facility] Start: 1993 COVID-19 Vaccine (1) COVID-19 Vaccin e (1) [facility] Start: 1989 MMR Vaccines (1 of 1 - Standard series) MMR Vaccines (1 of 1 - Standard series) [facility] Start: 1989 Varicella vaccine (1 of 2 - 2-dose childhood series) Varicella vaccine (1 of 2 - 2-dose childhood series) [facility] Start: 1988 Hepatitis C screening Hepatitis C sc reen [facility] Start: 1988 HIV screening HIV Screening [facility] Immunizations Immunization Date Immunization Notes Care Provider Fa cility 06-01-2023 influenza virus vacc ine, unspecified formulation Angela Richardson MID LEVEL JAVA DEVELOPER - RADIOTELEGRAPHER Work Phone: [facility] 06-26-2021 Pfizer SARS-CoV-2 Vaccination Angela Richardson MID LEVEL JAVA DEVELOPER - RADIOTELEGRAPHER Work Phone: [facility] 09-14-2020 Pfizer SARS-CoV-2 Vaccination Angela Richardson MID LEVEL JAVA DEVELOPER - [facility] Work Phone: [facility] 08-23-2020 Pfizer SARS-CoV-2 Vaccination Angela Richardson MID LEVEL JAVA DEVELOPER - RADIOTELEGRAPHER Work Phone: [facility] Payers Date Payer Category Payer Unknown [id number] 2024 Self-pay 2024 Unknown 2023 Private Health Insurance [employer] A ET[employer] PPO [id number] 2023-Present [address] [place] [address] Commercial [id number] 2023 Private Health Insurance [id number] 2023 Unknown [id number] 2021 Unknown [facility] /ACCEL [id number] 2021-Present [phone] [address] [address] [place] [address] [id number] 2013 Commercial Managed C are - PPO [id number] 2013 Private Health Insurance [id number] 1988 Unknown [id number] [id number] 1988 Unknown [id number] [id number] 1988 Unknown [id number] [id number] 1988 Unknown [id number] [id number] 1988 Unknown [id number] [id number] 1988 Unknown [id number] [id number] 1988 Unknown [id number] [id number] Unknown [id number] Unknown [id number] [id number] Unknown [id number] [id number] Unknown [id number] [id number] Social History Date Type Detail Facility Start: 03-07-2018 End: 05-18-2025 Tobacco smoking status FLIS Never smoked tobacco [facility] Work Phone: Start: 03-07-2018 Tobacco use and exposure Smokeless tobacco non-user [facility] Work Phone: Start: 03-13-2019 End: 10-29-2024 Alcohol intake Current drinker of alcohol (finding) [facility] Work Phone: Start: 03-07-2018 History SDOH Alcohol Comment social [facility] Work Phone: Start: 1990 Sex Assigned At Not on file [facility] Work Phone: Start: 1990 Sex Assigned At Female A [facility] Start: 08-08-2022 End: 10-29-2024 History of Social function [facility] Start: 08-08-2022 End: 10-29-2024 Tobacco use panel [facility] Start: 04-28-2024 Gender identity Identifies as female gender (finding) [facility] Start: 03-20-2022 Sex Female (finding) [facility] Functional Status Date Assessment Result Facility 05-12-2023 Functional Status Sitting in bed , Rooming in [facility] 05-12-2023 Functional Status [facility] 05-12-2023 Functional Status [facility] 05-12-2023 Functional Status 7am-7pm [facility] 05-11-2023 Functional Status [facility] 05-11-2023 Functional Status [facility] 05-11-2023 Functional Status [facility] 05-11-2023 Functional Status Home independently [facility] Notes 05-11-2023 to 05-18-2025 Note Date & Type Note Facility 05-18-2025 Evaluation note Diagnosis Onset Date Resolution Breast mass, right acute Septem 2024 1:45pm [facility] Work Phone: 1(518) 882-647709-29-2025 Progress [facility] [address] [place], [place] [id number] OFFICE VISIT Date of Service: 05/18/25 MR#: [id number] Acct: [id number] Name: CARLOS FRANCOIS Rep #: [id number] : 1990 Provider: Dr. Buster Pardo MD Age/Sex: 34/F Location: [facility] Status: Signed Intake Vital Signs 05/18/25 13:59 Weight: 193 lb BP 115/76 Blood Pressure Location Rt brachial Position Sitting Respiration 17 Pulse 62 Pulse Source Monitor Pulse Oximetry (%) 100 Oxygen Delivery Method room air Intake Visit Reasons: BIRADS 4 Chief Complaint: birads 4 Is patient in pain?: No Allergies No Known Allergies Allergy (Verified 05/18/25 14:00) Medications ?Medication ?Instructions ?Recorded ?Confirmed ?Type drospirenone 3 mg-ethinyl 1 tab PO QDAY 05/18/2505/18 History estradiol 0.02 mg tablet (KAJAL (28)) PFSH Family History (Updated 05/18/25 @ 13:58 by Latrice Akins) Grandmother Breast cancer Father Heart disease Hypertension Social History (Updated 05/18/25 @ 13:58 by Latrice Akins) Smoking Status: Never smoker alcohol intake: current alcohol intake frequency: holidays/special occasions only HPI HPI HPI: The patient is a 34-year-old female who is being seen today for an abnormal right breast mammogram and ultrasound. She states that she does have a family history of breast cancer in one of her grand mothers. No other family members with breast cancer. She denies any nipple discharge or drainage. She notes some mild tenderness in the upper aspect of the right breast but no obvious masses or other abnormalities. She states that this tenderness has been presentfor about the past year. Ultrasound recently showed about a 3 to 4 mm hypoechoic nodule in the right breast. She presents today for evaluation and possible biopsy ROS General General: No weight change, appetite, fatigue, colon cancer, breast cancer or weakness HEENT HEENT: No difficulty swallowing, eye injury, eye surgery, swollen glands or hoarseness Endo Endocrine: No thyroid disease, diabetes mellitus, thyroid cancer, Hair loss, heat intolerance or cold intolerance Skin Skin: Yes changing moles; No rash Breast Breast: Yes right breast lump, abnormal mammogram and abnormal US; No left breast lump, nipple discharge, breast pain or breast enlargement Musc Musculoskeletal: No back problems, arthritis, rheumatoid arthritis, gout or joint pain Cardio Cardiovascular: No murmur, pacemaker, heart disease, atrial fibrillation, high blood pressure, heart attack, heart stent, palpitations, shortness of breath with exertion or chest pain Psych Psychiatric: No depression, anxiety or hearing voices Resp Respiratory: No shortness of breath, No sleep apnea, No cough, No COPD, No asthma, No emphysema andNo wheezing Gastro Gastrointestinal: No abdominal pain, No nausea or vomiting, No diarrhea, No constipation, No blood in stool, No acid reflux, No hemorrhoids, No ulcers, No gallbladder problem and No black,tarry stools Sameer Hematologic: No blood thinners, No blood disorders, No bleeding, No anemia and No blood clots Neuro Neurologic: No system reviewed and no additional complaints, except as documented, No as per HPI, No abnormal gait, No abnormal hearing, No abnormal movements, No abnormal speech, No behavioral changes, No burning sensations, No confusion, No convulsions, No disequilibrium, No dizziness, No localized weakness, No frequent falls, No headache(s), No lack of coordination, No loss ofvision, No memoryloss, No numbness, No other visual disturbances, No radicular pain, No restless legs, No sensory deficit, No syncope, No tingling, No tremor(s), No weakness and No other Exam Const General: cooperative, healthy appearing, comfortable, no acute distress and acute distress HENMT Head: normal to inspection Eyes General: appearance normal, both eyes and all related structures Neck Neck: normal visual inspection Chest Breast Palpation: Yes normal palpation of the breasts and Yes normal palpation of the axillae Assessment and Plan Assessment and Plan (1) Breast mass, right: Status: Acute Plan: The patient is a 34-year-old female who presents today with an abnormal right breast ultrasound. This showed a 3 to 4 mm hypoechoic lesion. Biopsy was recommended. This was felt to be too small to identify in the office today. Instead, I have recommended that we schedule this as an ultrasound-guided core biopsy to be performed in radiology. We discussed the details of the planned procedure and she wishes to proceed. This will be scheduled in a timely manner. Coding Level of Care Code Off vis,new,level 4 Diagnoses Breast mass, right N63.10 05/18/25 1434 k > Date _ Kuldeep Pardo MD Cosigner Signature: Date (if applicable) CC: Dr. Sylvia Hansen MD ~ [facility]09-29-2025 Progress note Author Kuldeep Pardo [facility] Note Date/Time May 18, 2025 2:34pm [facility] [address] [place] [address]. [address] [place] [address] OFFICE VISIT Date of Service: 05/18/25 MR#: [id number] Acct: [id number] Name: CARLOS FRANCOIS Rep #: [id number] : 1990 Provider: Dr. Buster Pardo MD Age/Sex: 34/F Location: [facility] Status: Signed Intake Vital Signs 05/18/25 13:59 Weight: 193 lb BP 115/76 Blood Pressure Location Rt brachial Position Sitting Respiration 17 Pulse 62 Pulse Source Monitor Pulse Oximetry (%) 100 Oxygen Delivery Method room air Intake Visit Reasons: BIRADS 4 Chief Complaint: birads 4 Is patient in pain?: No Allergies No Known Allergies Allergy (Verified 05/18/25 14:00) Medications ?Medication ?Instructions ?Recorded ?Confirmed ?Type drospirenone 3 mg-ethinyl 1 tab PO QDAY 05/18/2505/18 History estradiol 0.02 mg tablet (KAJAL (28)) PFSH Family History (Updated 05/18/25 @ 13:58 by Latrice Akins) Grandmother Breast cancer Father Heart disease Hypertension Social History (Updated 05/18/25 @ 13:58 by Latrice Akins) Smoking Status: Never smoker alcohol intake: current alcohol intake frequency: holidays/special occasions only HPI HPI HPI: The patient is a 34-year-old female who is being seen today for an abnormal right breast mammogram and ultrasound. She states that she does have a family history of breast cancer in one of her grand mothers. No other family members with breast cancer. She denies any nipple discharge or drainage. She notes some mild tenderness in the upper aspect of the right breast but no obvious masses or other abnormalities. She states that this tenderness has been presentfor about the past year. Ultrasound recently showed about a 3 to 4 mm hypoechoic nodule in the right breast. She presents today for evaluation and possible biopsy ROS General General: No weight change, appetite, fatigue, colon cancer, breast cancer or weakness HEENT HEENT: No difficulty swallowing, eye injury, eye surgery, swollen glands or hoarseness Endo Endocrine: No thyroid disease, diabetes mellitus, thyroid cancer, Hair loss, heat intolerance or cold intolerance Skin Skin: Yes changing moles; No rash Breast Breast: Yes right breast lump, abnormal mammogram and abnormal US; No left breast lump, nipple discharge, breast pain or breast enlargement Musc Musculoskeletal: No back problems, arthritis, rheumatoid arthritis, gout or joint pain Cardio Cardiovascular: No murmur, pacemaker, heart disease, atrial fibrillation, high blood pressure, heart attack, heart stent, palpitations, shortness of breath with exertion or chest pain Psych Psychiatric: No depression, anxiety or hearing voices Resp Respiratory: No shortness of breath, No sleep apnea, No cough, No COPD, No asthma, No emphysema and No wheezing Gastro Gastrointestinal: No abdominal pain, No nausea or vomiting, No diarrhea, No constipation, No blood in stool, No acid reflux, No hemorrhoids, No ulcers, No gallbladder problem and No black,tarry stools Sameer Hematologic: No blood thinners, No blood disorders, No bleeding, No anemia and No blood clots Neuro Neurologic: No system reviewed and no additional complaints, except as documented, No as per HPI, No abnormal gait, No abnormal hearing, No abnormal movements, No abnormal speech, No behavioral changes, No burning sensations, No confusion, No convulsions, No disequilibrium, No dizziness, No localized weakness, No frequent falls, No headache(s), No lack of coordination, No loss ofvision, No memory loss, No numbness, No other visual disturbances, No radicular pain, No restless legs, No sensory deficit, No syncope, No tingling, No tremor(s), No weakness and No other Exam Const General: cooperative, healthy appearing, comfortable, no acute distress and acute distress [facility] Head: normal to inspection Eyes General: appearance normal, both eyes and all related structures Neck Neck: normal visual inspection Chest Breast Palpation: Yes normal palpation of the breasts and Yes normal palpation of the axillae Assessment and Plan Assessment and Plan (1) Breast mass, right: Status: Acute Plan: The patient is a 34-year-old female who presents today with an abnormal right breast ultrasound. This showed a 3 to 4 mm hypoechoic lesion. Biopsy was recommended. This was felt to be too small to identify in the office today. Instead, I have recommended that we schedule this as an ultrasound-guided core biopsy to be performed in radiology. We discussed the details of the planned procedure and she wishes to proceed. This will be scheduled in a timely manner. Coding Level of Care Code Off vis,new,level 4 Diagnoses Breast mass, right N63.10 05/18/25 1434 <Electronically signed by Kuldeep rodriguez MD> Date _ Kuldeep Pardo MD [facility] Signature: Date (if applicable) CC: Dr. Sylvia Hansen MD ~ [facility] Work Phone: 1(285) 379-626309-24-2025 Radiology Diagnostic study note [facility] Services [address] [place], [place] [address] Breast Limited Unilateral MR#: [id number] Acct: [id number] Name: CARLOS FRANCOIS Rep #: [id number] : 1990 F 34 From: Jeffry Lockwood MD PCP: Dr. Sylvia Hansen MD Status: R EG CLI Study:Breast Limited Unilateral Date of Exam: 05/12/25 Exam# [id number] Ordering Dr: Kuldeep London MD PROCEDURE: BREAST LIMITED UNILATERAL 05/12/2025 REASON FOR EXAM: F, Age 34 y/o , ABN MAMM COMPARISON: Prior mammogram done earlier in the day.. TECHNIQUE: Procedure Code: USBRSTLIMIT Modality: US Procedure: BREAST LIMITED UNILATERAL. The entire right breast was examined with ultrasound. FINDINGS: There is a 4 mm x 6 mm by 4 mm well-defined hypoechoic solid nodule at the 11 o'clock position of the breast at 4 cm from the nipple. This is unchanged as compared to prior sonogram from an outside institution. This may represent a small fibroadenoma. US/Breast Limited Unilateral IMPRESSION: Stable 4 mm x 4 mm x 6 mm well-defined hypoechoic nodule at the 11 o'clock position of the breast at 4 cm from the nipple. Biopsy recommended if not already performed. BI-RADS 4: SUSPICIOUS RECOMMENDATION: Biopsy Recommended Reading Location: [place] [address] CC: Dr. Sylvia Hansen MD; Dr. Kuldeep London MD ~ Dinkey Mechanic: Signed [facility]09-24-2025 Radiology Diagnostic study note [facility] Imaging Services [address] [place] [address] Breast Limited Unilateral MR#: [id number] Acct: [id number] Name: CARLOS FRANCOIS Rep #: [id number] : 1990 F 34 From: Jeffry Lockwood MD PCP: Dr. Sylvia Hansen MD Status: R EG CLI Study:Breast Limited Unilateral Date of Exam: 05/12/25 Exam# [id number] Ordering Dr: Kuldeep London MD PROCEDURE: BREAST LIMITED UNILATERAL 05/12/2025 REASON FOR EXAM: F, Age 34 y/o , ABN MAMM COMPARISON: Prior mammogram done earlier in the day.. TECHNIQUE: Procedure Code: USBRSTLIMIT Modality: US Procedure: BREAST LIMITED UNILATERAL left breast sonogram. FINDINGS: Dense fibroglandular tissue. No sonographic abnormality is seen. US/Breast Limited Unilateral IMPRESSION: Dense fibroglandular tissue. No sonographic abnormality is seen. BI-RADS 1: NEGATIVE RECOMMENDATION: Routine annual follow-up in 1 Year Reading Location: [place] [address] CC: Dr. Sylvia Hansen MD; Dr. Kuldeep London MD ~ Dinkey Mechanic: Signed [facility]09-23-2023 Hospital Discharge instructions Patient Education 05/12/2023 08:56:30 Hemorrhage Hemorrhage hemorrhage is excessive blood loss after childbirth. Vaginal bleeding after delivery is normal and should be expected. Bleeding (lochia) will occur for several days after childbirth. This can be expected with normal vaginal deliveries and deliveries. However, hemorrhage is a potentially serious condition. What are the causes? This condition is caused by: A loss of muscle tone in the uterus after childbirth. This can be caused by: ?An abnormal placenta. ?Infection. ?Bladder swelling (distension). Failure to deliver all of the placenta or the retention of clots. Wounds in the canal caused by delivery of the fetus. Infection of the uterus. Infection of tissue around the fetus. A tear in the uterus. Tearing of the vagina or cervix during delivery. A maternal bleeding disorder that prevents blood from clotting (rare). What increases the risk? This condition is likely to develop in people who: Have a history of hemorrhage. Had a delivery that lasted longer than usual. Have an excess of amniotic fluid in the amniotic sac (polyhydramnios), leading the uterus to stretch too much. Have delivered quintuplets or more babies. Had high blood pressure, seizures, or coma during . Had a condition called preeclampsia or eclampsia during . Had problems with the placenta. Had complications during labor or delivery. Are obese. Are 40 years old or older. Are or . What are the signs or symptoms? Symptoms of this condition include: Passing large clots or pieces of tissue. These may be small pieces of placenta left after delivery. Soaking more than one sanitary pad per hour for several hours. Heavy, bright-red bleeding that occurs 4 days or more after delivery. Discharge that has a bad smell. An unexplained fever. Nausea or vomiting. Pain or swelling near the vagina or perineum. A drop in blood pressure. Lightheadedness or fainting. Shortness of breath. A fast heart rate that happens with very little activity. Signs of shock, such as: ?Blurry vision. ?Chills. ?Dizziness. ?Weakness. How is this diagnosed? This condition may be diagnosed based on: Your symptoms. A physical exam of your perineum, vagina, cervix, and uterus. Tests, including: ?Blood pressure and pulse measurements. ?Blood tests. ?Blood clotting tests. ?Ultrasonography. How is this treated? Treatment for this condition depends on the severity of your symptoms. It may include: Uterine massage. Medicines to help the uterus contract. Blood transfusions. Fluids given through the vein. A medical procedure to compress arteries supplying the uterus. Sometimes bleeding occurs if portions of the placenta are left behind in the uterus after delivery.If this happens, a curettage or scraping of the inside of the uterus must be done (rare). This usually stops the bleeding. If curettage does not stop the bleeding, surgery may be done to remove the uterus (hysterectomy), but this rarely occurs. If bleeding is due to clotting or bleeding problems that are not related to the , other treatments may be needed. Follow these instructions at home: Limit your activity as directed by your health care provider. Your health care provider may order bed rest (getting up to go to the bathroom only) or may allow you to continue light activity. Keep track of the number of pads you use each day and how soaked (saturated) they are. Write down this information. Do not use tampons. Do not douche or have sexual intercourse until your health care provider approves. Drink enough fluids to keep your urine clear or pale yellow. Get enough rest. Eat foods that are rich in iron, such as spinach, red meat, and legumes. Take any jqns-phx-jznhbxt and prescription medicines only as told by your health care provider. Keep all follow-up visits as told by your health care provider. This is important. Get help right away if: You experience severe cramps in your stomach, back, or abdomen. You have a fever. You pass large clots or tissue. Save any tissue for your health care provider to look at. Your bleeding increases. You have heavy bleeding that soaks one pad per hour for 2 hours in a row. You faint or become dizzy, weak, or lightheaded. Your sanitary pad count per hour is increasing. You are urinating less than usual or not at all. You have shortness of breath. Your heart rate is faster than usual. You have sudden chest pain. This information is not intended to replace advice given to you by your health care provider. Make sure you discuss any questions you have with your health care provider. Document Released: 10/26/2004 Document Revised: 07/19/2018 Document Reviewed: 03/09/2017 [employer] Patient Education 2020 [employer]. 05/12/2023 08:56:30 Hypertension Hypertension hypertension is high blood pressure that remains higher than normal after childbirth. You may not realize that you have hypertension if your blood pressure is not being checked regularly. In most cases, hypertension will go away on its own, usually within a week of delivery. However, for some women, medical treatment is required to prevent serious complications, such as seizures or stroke. What are the causes? This condition may be caused by one or more of the following: Hypertension that existed before (chronic hypertension). Hypertension that comes on as a result of (gestational hypertension). Hypertensive disorders during (preeclampsia) or seizures in women who have high blood pressure during (eclampsia). A condition in which the liver, platelets, and red blood cells are damaged during (HELLP syndrome). A condition in which the thyroid produces too much hormones (hyperthyroidism). Other rare problems of the nerves (neurological disorders) or blood disorders. In some cases, the cause may not be known. What increases the risk? The following factors may make you more likely to develop this condition: Chronic hypertension. In some cases, this may not have been diagnosed before . Obesity. Type 2 diabetes. Kidney disease. History of preeclampsia or eclampsia. Other medical conditions that change the level of hormones in the body (hormonal imbalance). What are the signs or symptoms? As with all types of hypertension, hypertension may not have any symptoms. Depending on how high your blood pressure is, you may experience: Headaches. These may be mild, moderate, or severe. They may also be steady, constant, or sudden in onset (thunderclap headache). Changes in your ability to see (visual changes). Dizziness. Shortness of breath. Swelling of your hands, feet, lower legs, or face. In some cases, you may have swelling in more than one of these locations. Heart palpitations or a racing heartbeat. Difficulty breathing while lying down. Decrease in the amount of urine that you pass. Other rare signs and symptoms may include: Sweating more than usual. This lasts longer than a few days after delivery. Chest pain. Sudden dizziness when you get up from sitting or lying down. Seizures. Nausea or vomiting. Abdominal pain. How is this diagnosed? This condition may be diagnosed based on the results of a physical exam, blood pressure measurements, and blood and urine tests. You may also have other tests, such as a CT scan or an MRI, to check for other problems of hypertension. How is this treated? If blood pressure is high enough to require treatment, your options may include: Medicines to reduce blood pressure (antihypertensives). Tell your health care provider if you are or if you plan to breastfeed. There are many antihypertensive medicines that are safe to take while . Stopping medicines that may be causing hypertension. Treating medical conditions that are causing hypertension. Treating the complications of hypertension, such as seizures, stroke, or kidney problems. Your health care provider will also continue to monitor your blood pressure closely until it is within a safe range for you. Follow these instructions at home: Take stxw-trm-xabghtk and prescription medicines only as told by your health care provider. Return to your normal activities as told by your health care provider. Ask your health care provider what activities are safe for you. Do not use any products that contain nicotine or tobacco, such as cigarettes and e-cigarettes. If you need help quitting, ask your health care provider. Keep all follow-up visits as told by your health care provider. This is important. Contact a health care provider if: Your symptoms get worse. You have new symptoms, such as: ?A headache that does not get better. ?Dizziness. ?Visual changes. Get help right away if: You suddenly develop swelling in your hands, ankles, or face. You have sudden, rapid weight gain. You develop difficulty breathing, chest pain, racing heartbeat, or heart palpitations. You develop severe pain in your abdomen. You have any symptoms of a stroke. "BE FAST" is an easy way to remember the main warning signs of astroke: ?B - Balance. Signs are dizziness, sudden trouble walking, or loss of balance. ?E - Eyes. Signs are trouble seeing or a sudden change in vision. ?F - Face. Signs are sudden weakness or numbness of the face, or the face or eyelid drooping on oneside. ?A - Arms. Signs are weakness or numbness in an arm. This happens suddenly and usually on one side of the body. ?S - Speech. Signs are sudden trouble speaking, slurred speech, or trouble understanding what people say. ?T - Time. Time to call emergency services. Write down what time symptoms started. You have other signs of a stroke, such as: ?A sudden, severe headache with no known cause. ?Nausea or vomiting. ?Seizure. These symptoms may represent a serious problem that is an emergency. Do not wait to see if the symptoms will go away. Get medical help right away. Call your local emergency services (911 in the [place] Do not drive yourself to the hospital. Summary hypertension is high blood pressure that remains higher than normal after childbirth. In most cases, hypertension will go away on its own, usually within a week of delivery. For some women, medical treatment is required to prevent serious complications, such as seizures orstroke. This information is not intended to replace advice given to you by your health care provider. Make sure you discuss any questions you have with your health care provider. Document Released: 04/09/2015 Document Revised: 09/12/2019 Document Reviewed: 05/27/2018 [employer] Patient Education 2019 [employer]. 05/12/2023 08:56:30 7b- Depression and Blues (05/2020) (CUSTOM) William Depression and Blues All mothers are at risk of developing depression or the " blues." These mood changes can occur right after giving , or they may occur many months after giving . blues or depression can be mild or severe. Additionally, depression can goaway rather quickly, or it can be a long-term condition. CAUSES Raised hormone levels and the rapid drop in those levels are thought to be a main cause of depression and blues. A number of hormones change during and after . Estrogenand progesterone usually decrease right after delivery. The levels of thyroid hormone and various cortisol steroids also rapidly drop. Other factors that play a role in these mood changes include major life events and genetics. RISK FACTORS If you have any of the following risks for blues or depression, know what symptoms to watch out for during the period. Risk factors that may increase the likelihood of getting blues or depression include: Having a personal or family history of depression. Having depression while being . Having premenstrual mood issues or mood issues related to oral contraceptives. Having a lot of life stress. Having marital conflict. Lacking a social support network. Having health problems, such as diabetes. SIGNS AND SYMPTOMS Symptoms of blues include: Brief changes in mood, such as going from extreme happiness to sadness. Decreased concentration. Difficulty sleeping. Crying spells, tearfulness. Irritability. Anxiety. Symptoms of depression typically begin within the first month after giving . These symptoms include: Difficulty sleeping or excessive sleepiness. Marked weight loss. Agitation. Feelings of worthlessness. Lack of interest in activity or food. psychosis is a very serious condition and can be dangerous. Fortunately, it is rare. Displaying any of the following symptoms is cause for immediate medical attention. Symptoms of psychosis include: Hallucinations and delusions. Bizarre or disorganized behavior. Confusion or disorientation. DIAGNOSIS A diagnosis is made by an evaluation of your symptoms. There are no medical or lab tests that lead to a diagnosis, but there are various questionnaires that a health care provider may use to identifythose with blues, depression, or psychosis. Often, a screening tool called the [place] Depression Scale is used to diagnose depression in the period. TREATMENT blues usually goes away on its own in 1 2 weeks. Social support is often all that is needed. You will be encouraged to get adequate sleep and rest. Occasionally, you may be given medicinesto help you sleep. depression requires treatment because it can last several months or longer if it is not treated. Treatment may include individual or group therapy, medicine, or both to address any social,physiological, and psychological factors that may play a role in the depression. Regular exercise, a healthy diet, rest, and social support may also be strongly recommended. psychosis is more serious and needs treatment right away. Hospitalization is often needed. HOME CARE INSTRUCTIONS Get as much rest as you can. Exercise regularly. Some women find yoga and walking to be beneficial. Eat a balanced and nourishing diet. Do little things that you enjoy. Have a cup of tea, take a bubble bath, read your favorite magazine, or listen to your favorite music. Avoid alcohol. Ask for help with manual machinist, cooking, grocery shopping, or running errands as needed. Do nottry to do everything. Talk to people close to you about how you are feeling. Get support from your partner, family members, and friends. Try to stay positive in how you think. Think about the things you are grateful for. Do not spend a lot of time alone. Only take qhyc-wcp-zaszill or prescription medicine as directed by your health care provider. Keep all your appointments. Let your health care provider know if you have any concerns. SEEK MEDICAL CARE IF: You are having a reaction to or problems with your medicine. SEEK IMMEDIATE MEDICAL CARE IF: You have suicidal feelings. You think you may harm yourself or someone else. MAKE SURE YOU: Understand these instructions. Will watch your condition. Will get help right away if you are not doing well or get worse. Resource: [employer] Patient Information 2015 [employer]. This information is not intended to replace advicegiven to you by your health care provider. Make sure you discuss any questions you have with your health care provider. 05/12/2023 08:56:30 7- Home Care Instructions After Delivery 09/2019 (CUSTOM) Home Care Instructions After Delivery After discharge you may discover that you still have questions about body changes, activity, and care during the next few weeks. The following information should be helpful in answering many of your questions. ACTIVITY Resume your daily activities at home gradually. Allow time for rest periods during the day Avoid heavy lifting (more than 10 pounds/4.5 kilograms) and strenuous work or sports. If you had a , you should refrain from vacuuming, stair-climbing, and driving a car for 2 to 3 weeks. VAGINAL FLOW & RETURN OF MENSES Vaginal flow may continue for 4 to 6 weeks after delivery. 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 Bright red and increased flow may reoccur if you have been too active. Lie down, rest, and call your caregiver if you are soaking more than 1 pad an hour or passing largeclots. Menstrual period will usually return 6 to 8 weeks after delivery. PERINEAL CARE Use the mirna-bottle and change sanitary pads each time you go to the bathroom. Use towelettes in place of toilet paper until stitches are healed. Continue to use tucks and/or spray dermoplast. Lidocaine cream for episiotomy pain with your care givers approval. Do not use tampons or douches until vaginal bleeding has stopped (about 4 weeks). No Sexual intercourse until seen by physician. INCISION (CUT BY THE SURGEON) CARE Following , shower as desired but try to keep your incision dry. A small amount of clear or pink drainage is normal. The incision site will be tender for several weeks. Take prescription or mhgp-usy-ftsfpil medications for pain with your care givers approval. Contact your caregiver if the drainage increases, becomes foul smelling, the incision reddens, or you develop a fever. BOWELS/HEMORRHOIDS Try to avoid constipation by increasing the fluids and fiber in your diet. Drink at least 6 to 8 glasses of non-caffeinated fluids per day. Include whole grains, raw fruits and vegetables in your diet. Avoid straining when trying to pass a stool. Cari-icl-fkvzint medications, stool softeners, can be used. Check with your caregiver. NUTRITION Eat a well-balanced diet that includes the basic food groups. Do not try to lose weight quickly by drastically cutting back on calories. EXERCISES Kegel exercises Start this exercise right after delivery. You can do it while standing, sitting, or lying down. Tighten your stomach muscles and the muscles surrounding your canal. Hold for a few seconds and then relax. Do Kegel exercises when you take a sitz bath. Repeat often during the day. Choose specialtimes during the day when you will remember to do this (for example, when using the bathroom, turning the water faucet on, etc.). Repeat 5 times each time. Make Kegel exercises a part of your daily routine to maintain the tone of muscles that support your vagina, bladder, and bowels. SELF BREAST EXAMINATION A self breast exam needs to be an important part of every woman's self-care. Do your self breast exam once a month, 5 to 7 days after your period begins, unless you are . Do self breast exams at the same time of the month each month, on a day of your choice. Any lump, bump or discharge should be reported to your caregiver. SEEK MEDICAL CARE IMMEDIATELY IF YOU NOTICE: Sanitary pad soaked with blood in 1 hour or less. Severe lower abdominal pain or cramping. Foul-smelling discharge from vagina. Increased rather than decreased pain around stitches and/or swelling, redness or hardness in area. Pain and/or redness in calf of the leg. Nausea with vomiting for 12 hours. Sudden, severe chest pain. Shortness of breath. Painful urination. Severe headache. Area of the breast is red and sore and you have a fever. (You may feel like you have flu symptoms.) Follow Up Care 05/11/2023 00:52:53 With:KULDEEP LONDON MD, Obstetrics & Gynecology Address: [address] [place] [address]- When:Within 6 Week(s) [facility] 09-23-2023 Note Discharge Instructions Thank you for allowing [facility] to assist you with your healthcare needs. The following is importantdischarge information regarding your hospital visit. Your Care Team PHYSICIAN, NONE What to do next Follow Up Appointments Follow Up with KULDEEP LONDON MD, Obstetrics & Gynecology When In 6 weeks Where: [address] [place] [address]- Someone Will Contact You Regarding These Home Health Referrals No home referrals have been ordered for you. No one will call you. The Following Activity and Diet Have Been Ordered for You Discharge Activity - Ordered -- Lifting Restricted less than 10 pounds May Shower Sexual Bliss Restricted, 05/12/23 8:10:00 EDT Discharge Diet - Ordered -- No changes were made to your diet during your hospital stay. Please resume your pre hospitalization diet on discharge., 05/12/23 8:10:00 EDT The Following Equipment Has Been Ordered for You No qualifying data available. The Following Treatments Have Been Arranged for You Discharge Labs No qualifying data available. Discharge Radiology No qualifying data available. Other Therapies No qualifying data available. Allergies NKA Medications Please ask your primary doctor or pharmacist before taking any other medication not listed, including over the counter drugs, herbal medications, vitamins and or supplements as they may interact withyour home medications. What How Much When Instructions Last Dose Unchanged ibuprofen (ibuprofen 600 mg oral tablet) 1 tab(s) by mouth Every 6 hours as needed for for pain Take with food or milk. Unchanged multivitamin, (PNV Select) by mouth Once a day What How Much When Comments Stop Taking docusate (Colace 100 mg oral capsule) 1 cap by mouth Two (2) times a day as needed for for constipation Stop Taking ferrous sulfate (IRON (ferrous sulfate 325 mg) 65 mg oral tablet) 1 tab(s) by mouth Twice daily with meals Take with food. Please take this list to your next doctor s visit. Bring all medications you take, including over the counter medications, herbals and other supplements with you to your doctor s visit. Patients and families are reminded to discard old lists and to update any records with all medication providers or retail pharmacies. Education Materials Hemorrhage hemorrhage is excessive blood loss after childbirth. Vaginal bleeding after delivery is normal and should be expected. Bleeding (lochia) will occur for several days after childbirth. This can be expected with normal vaginal deliveries and deliveries. However, hemorrhage is a potentially serious condition. What are the causes? This condition is caused by: A loss of muscle tone in the uterus after childbirth. This can be caused by: ? An abnormal placenta. ? Infection. ? Bladder swelling (distension). Failure to deliver all of the placenta or the retention of clots. Wounds in the canal caused by delivery of the fetus. Infection of the uterus. Infection of tissue around the fetus. A tear in the uterus. Tearing of the vagina or cervix during delivery. A maternal bleeding disorder that prevents blood from clotting (rare). What increases the risk? This condition is likely to develop in people who: Have a history of hemorrhage. Had a delivery that lasted longer than usual. Have an excess of amniotic fluid in the amniotic sac (polyhydramnios), leading the uterus to stretch too much. Have delivered quintuplets or more babies. Had high blood pressure, seizures, or coma during . Had a condition called preeclampsia or eclampsia during . Had problems with the placenta. Had complications during labor or delivery. Are obese. Are 40 years old or older. Are or . What are the signs or symptoms? Symptoms of this condition include: Passing large clots or pieces of tissue. These may be small pieces of placenta left after delivery. Soaking more than one sanitary pad per hour for several hours. Heavy, bright-red bleeding that occurs 4 days or more after delivery. Discharge that has a bad smell. An unexplained fever. Nausea or vomiting. Pain or swelling near the vagina or perineum. A drop in blood pressure. Lightheadedness or fainting. Shortness of breath. A fast heart rate that happens with very little activity. Signs of shock, such as: ? Blurry vision. ? Chills. ? Dizziness. ? Weakness. How is this diagnosed? This condition may be diagnosed based on: Your symptoms. A physical exam of your perineum, vagina, cervix, and uterus. Tests, including: ? Blood pressure and pulse measurements. ? Blood tests. ? Blood clotting tests. ? Ultrasonography. How is this treated? Treatment for this condition depends on the severity of your symptoms. It may include: Uterine massage. Medicines to help the uterus contract. Blood transfusions. Fluids given through the vein. A medical procedure to compress arteries supplying the uterus. Sometimes bleeding occurs if portions of the placenta are left behind in the uterus after delivery.If this happens, a curettage or scraping of the inside of the uterus must be done (rare). This usually stops the bleeding. If curettage does not stop the bleeding, surgery may be done to remove the uterus (hysterectomy), but this rarely occurs. If bleeding is due to clotting or bleeding problems that are not related to the , other treatments may be needed. Follow these instructions at home: Limit your activity as directed by your health care provider. Your health care provider may order bed rest (getting up to go to the bathroom only) or may allow you to continue light activity. Keep track of the number of pads you use each day and how soaked (saturated) they are. Write down this information. Do not use tampons. Do not douche or have sexual intercourse until your health care provider approves. Drink enough fluids to keep your urine clear or pale yellow. Get enough rest. Eat foods that are rich in iron, such as spinach, red meat, and legumes. Take any zvhp-war-bimwttq and prescription medicines only as told by your health care provider. Keep all follow-up visits as told by your health care provider. This is important. Get help right away if: You experience severe cramps in your stomach, back, or abdomen. You have a fever. You pass large clots or tissue. Save any tissue for your health care provider to look at. Your bleeding increases. You have heavy bleeding that soaks one pad per hour for 2 hours in a row. You faint or become dizzy, weak, or lightheaded. Your sanitary pad count per hour is increasing. You are urinating less than usual or not at all. You have shortness of breath. Your heart rate is faster than usual. You have sudden chest pain. This information is not intended to replace advice given to you by your health care provider. Make sure you discuss any questions you have with your health care provider. Document Released: 10/26/2004 Document Revised: 07/19/2018 Document Reviewed: 03/09/2017 [employer] Patient Education 2020 [employer] Hypertension hypertension is high blood pressure that remains higher than normal after childbirth. You may not realize that you have hypertension if your blood pressure is not being checked regularly. In most cases, hypertension will go away on its own, usually within a week of delivery. However, for some women, medical treatment is required to prevent serious complications, such as seizures or stroke. What are the causes? This condition may be caused by one or more of the following: Hypertension that existed before (chronic hypertension). Hypertension that comes on as a result of (gestational hypertension). Hypertensive disorders during (preeclampsia) or seizures in women who have high blood pressure during (eclampsia). A condition in which the liver, platelets, and red blood cells are damaged during (HELLP syndrome). A condition in which the thyroid produces too much hormones (hyperthyroidism). Other rare problems of the nerves (neurological disorders) or blood disorders. In some cases, the cause may not be known. What increases the risk? The following factors may make you more likely to develop this condition: Chronic hypertension. In some cases, this may not have been diagnosed before . Obesity. Type 2 diabetes. Kidney disease. History of preeclampsia or eclampsia. Other medical conditions that change the level of hormones in the body (hormonal imbalance). What are the signs or symptoms? As with all types of hypertension, hypertension may not have any symptoms. Depending on how high your blood pressure is, you may experience: Headaches. These may be mild, moderate, or severe. They may also be steady, constant, or sudden in onset (thunderclap headache). Changes in your ability to see (visual changes). Dizziness. Shortness of breath. Swelling of your hands, feet, lower legs, or face. In some cases, you may have swelling in more than one of these locations. Heart palpitations or a racing heartbeat. Difficulty breathing while lying down. Decrease in the amount of urine that you pass. Other rare signs and symptoms may include: Sweating more than usual. This lasts longer than a few days after delivery. Chest pain. Sudden dizziness when you get up from sitting or lying down. Seizures. Nausea or vomiting. Abdominal pain. How is this diagnosed? This condition may be diagnosed based on the results of a physical exam, blood pressure measurements, and blood and urine tests. You may also have other tests, such as a CT scan or an MRI, to check for other problems of hypertension. How is this treated? If blood pressure is high enough to require treatment, your options may include: Medicines to reduce blood pressure (antihypertensives). Tell your health care provider if you are or if you plan to breastfeed. There are many antihypertensive medicines that are safe to take while . Stopping medicines that may be causing hypertension. Treating medical conditions that are causing hypertension. Treating the complications of hypertension, such as seizures, stroke, or kidney problems. Your health care provider will also continue to monitor your blood pressure closely until it is within a safe range for you. Follow these instructions at home: Take gzdb-iqb-zjgfgkt and prescription medicines only as told by your health care provider. Return to your normal activities as told by your health care provider. Ask your health care provider what activities are safe for you. Do not use any products that contain nicotine or tobacco, such as cigarettes and e-cigarettes. If you need help quitting, ask your health care provider. Keep all follow-up visits as told by your health care provider. This is important. Contact a health care provider if: Your symptoms get worse. You have new symptoms, such as: ? A headache that does not get better. ? Dizziness. ? Visual changes. Get help right away if: You suddenly develop swelling in your hands, ankles, or face. You have sudden, rapid weight gain. You develop difficulty breathing, chest pain, racing heartbeat, or heart palpitations. You develop severe pain in your abdomen. You have any symptoms of a stroke. "BE FAST" is an easy way to remember the main warning signs of astroke: ? B - Balance. Signs are dizziness, sudden trouble walking, or loss of balance. ? E - Eyes. Signs are trouble seeing or a sudden change in vision. ? F - Face. Signs are sudden weakness or numbness of the face, or the face or eyelid drooping on one side. ? A - Arms. Signs are weakness or numbness in an arm. This happens suddenly and usually on one side of the body. ? S - Speech. Signs are sudden trouble speaking, slurred speech, or trouble understanding what peoplesay. ? T - Time. Time to call emergency services. Write down what time symptoms started. You have other signs of a stroke, such as: ? A sudden, severe headache with no known cause. ? Nausea or vomiting. ? Seizure. These symptoms may represent a serious problem that is an emergency. Do not wait to see if the symptoms will go away. Get medical help right away. Call your local emergency services (911 in the [place] Do not drive yourself to the hospital. Summary hypertension is high blood pressure that remains higher than normal after childbirth. In most cases, hypertension will go away on its own, usually within a week of delivery. For some women, medical treatment is required to prevent serious complications, such as seizures orstroke. This information is not intended to replace advice given to you by your health care provider. Make sure you discuss any questions you have with your health care provider. Document Released: 04/09/2015 Document Revised: 09/12/2019 Document Reviewed: 05/27/2018 [employer] Patient Education 2020 [employer]. [facility] Depression and Blues All mothers are at risk of developing depression or the " blues." These mood changes can occur right after giving , or they may occur many months after giving . blues or depression can be mild or severe. Additionally, depression can goaway rather quickly, or it can be a long-term condition. CAUSES Raised hormone levels and the rapid drop in those levels are thought to be a main cause of depression and blues. A number of hormones change during and after . Estrogenand progesterone usually decrease right after delivery. The levels of thyroid hormone and various cortisol steroids also rapidly drop. Other factors that play a role in these mood changes include major life events and genetics. RISK FACTORS If you have any of the following risks for blues or depression, know what symptoms to watch out for during the period. Risk factors that may increase the likelihood of getting blues or depression include: Having a personal or family history of depression. Having depression while being . Having premenstrual mood issues or mood issues related to oral contraceptives. Having a lot of life stress. Having marital conflict. Lacking a social support network. Having health problems, such as diabetes. SIGNS AND SYMPTOMS Symptoms of blues include: Brief changes in mood, such as going from extreme happiness to sadness. Decreased concentration. Difficulty sleeping. Crying spells, tearfulness. Irritability. Anxiety. Symptoms of depression typically begin within the first month after giving . These symptoms include: Difficulty sleeping or excessive sleepiness. Marked weight loss. Agitation. Feelings of worthlessness. Lack of interest in activity or food. psychosis is a very serious condition and can be dangerous. Fortunately, it is rare. Displaying any of the following symptoms is cause for immediate medical attention. Symptoms of psychosis include: Hallucinations and delusions. Bizarre or disorganized behavior. Confusion or disorientation. DIAGNOSIS A diagnosis is made by an evaluation of your symptoms. There are no medical or lab tests that lead to a diagnosis, but there are various questionnaires that a health care provider may use to identifythose with blues, depression, or psychosis. Often, a screening tool called the [place] Depression Scale is used to diagnose depression in the period. TREATMENT blues usually goes away on its own in 1 2 weeks. Social support is often all that is needed. You will be encouraged to get adequate sleep and rest. Occasionally, you may be given medicinesto help you sleep. depression requires treatment because it can last several months or longer if it is not treated. Treatment may include individual or group therapy, medicine, or both to address any social,physiological, and psychological factors that may play a role in the depression. Regular exercise, a healthy diet, rest, and social support may also be strongly recommended. psychosis is more serious and needs treatment right away. Hospitalization is often needed. HOME CARE INSTRUCTIONS Get as much rest as you can. Exercise regularly. Some women find yoga and walking to be beneficial. Eat a balanced and nourishing diet. Do little things that you enjoy. Have a cup of tea, take a bubble bath, read your favorite magazine, or listen to your favorite music. Avoid alcohol. Ask for help with manual machinist, cooking, grocery shopping, or running errands as needed. Do nottry to do everything. Talk to people close to you about how you are feeling. Get support from your partner, family members, and friends. Try to stay positive in how you think. Think about the things you are grateful for. Do not spend a lot of time alone. Only take geli-yks-zhltrla or prescription medicine as directed by your health care provider. Keep all your appointments. Let your health care provider know if you have any concerns. SEEK MEDICAL CARE IF: You are having a reaction to or problems with your medicine. SEEK IMMEDIATE MEDICAL CARE IF: You have suicidal feelings. You think you may harm yourself or someone else. MAKE SURE YOU: Understand these instructions. Will watch your condition. Will get help right away if you are not doing well or get worse. Resource: [employer] Patient Information 2015 [employer]. This information is not intended to replace advicegiven to you by your health care provider. Make sure you discuss any questions you have with your health care provider. Home Care Instructions After Delivery After discharge you may discover that you still have questions about body changes, activity, and care during the next few weeks. The following information should be helpful in answering many of your questions. ACTIVITY Resume your daily activities at home gradually. Allow time for rest periods during the day Avoid heavy lifting (more than 10 pounds/4.5 kilograms) and strenuous work or sports. If you had a , you should refrain from vacuuming, stair-climbing, and driving a car for 2 to 3 weeks. VAGINAL FLOW & RETURN OF MENSES Vaginal flow may continue for 4 to 6 weeks after delivery. 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 Bright red and increased flow may reoccur if you have been too active. Lie down, rest, and call your caregiver if you are soaking more than 1 pad an hour or passing largeclots. Menstrual period will usually return 6 to 8 weeks after delivery. PERINEAL CARE Use the mirna-bottle and change sanitary pads each time you go to the bathroom. Use towelettes in place of toilet paper until stitches are healed. Continue to use tucks and/or spray dermoplast. Lidocaine cream for episiotomy pain with your care givers approval. Do not use tampons or douches until vaginal bleeding has stopped (about 4 weeks). No Sexual intercourse until seen by physician. INCISION (CUT BY THE SURGEON) CARE Following , shower as desired but try to keep your incision dry. A small amount of clear or pink drainage is normal. The incision site will be tender for several weeks. Take prescription or hyai-jhg-lgrcmzz medications for pain with your care givers approval. Contact your caregiver if the drainage increases, becomes foul smelling, the incision reddens, or you develop a fever. BOWELS/HEMORRHOIDS Try to avoid constipation by increasing the fluids and fiber in your diet. Drink at least 6 to 8 glasses of non-caffeinated fluids per day. Include whole grains, raw fruits and vegetables in your diet. Avoid straining when trying to pass a stool. Dofd-zkr-lubmbrn medications, stool softeners, can be used. Check with your caregiver. NUTRITION Eat a well-balanced diet that includes the basic food groups. Do not try to lose weight quickly by drastically cutting back on calories. EXERCISES Kegel exercises Start this exercise right after delivery. You can do it while standing, sitting, or lying down. Tighten your stomach muscles and the muscles surrounding your canal. Hold for a few seconds and then relax. Do Kegel exercises when you take a sitz bath. Repeat often during the day. Choose specialtimes during the day when you will remember to do this (for example, when using the bathroom, turning the water faucet on, etc.). Repeat 5 times each time. Make Kegel exercises a part of your daily routine to maintain the tone of muscles that support your vagina, bladder, and bowels. SELF BREAST EXAMINATION A self breast exam needs to be an important part of every woman's self-care. Do your self breast exam once a month, 5 to 7 days after your period begins, unless you are . Do self breast exams at the same time of the month each month, on a day of your choice. Any lump, bump or discharge should be reported to your caregiver. SEEK MEDICAL CARE IMMEDIATELY IF YOU NOTICE: Sanitary pad soaked with blood in 1 hour or less. Severe lower abdominal pain or cramping. Foul-smelling discharge from vagina. Increased rather than decreased pain around stitches and/or swelling, redness or hardness in area. Pain and/or redness in calf of the leg. Nausea with vomiting for 12 hours. Sudden, severe chest pain. Shortness of breath. Painful urination. Severe headache. Area of the breast is red and sore and you have a fever. (You may feel like you have flu symptoms.) Additional Information VACCINATE! IT SAVES LIVES! Members of the community who have not yet received the COVID-19 vaccine and would like to receive it can visit one of [facility] vaccine clinics. There are many vaccine clinic locations within the [facility]. For locations and available times, please visit www.[email or web address].[place].gov/. It is important to note that some COVID mobile vaccine clinics are held outdoors and may be canceled in rainy or stormy conditions. To learn more about pediatric vaccinations (ages 5-11), we invite you to visit the [facility] webpage. https://www.[email or web address]/pages/[email or web address]-Hjrmi-Mytrtpxkwgz-Frcrnvodyh-Dpyxr-Ddp stions.htmlTo learn more about the COVID-19 vaccine, we invite you to visit the CDC website for a list of frequently asked questions. https://www.cdc.gov/coronavirus/2019-ncov/vaccines/faq.html [facility] Patient Portal Access Instructions: Stay connected with your healthcare team and access your personal medical information anytime with the [email or web address] Patient Portal.If you would like a full copy of your medical records, please contact the [facility] Medical Records Department, Sunday through Sunday between 8a.m. and 4:30p.m. Please follow the directions below to access the portal: 1.Access the email account you provided upon registration to the [facility].2.Look for an invitation email from [facility].3.Open the email and access the invitation link: Accept Invitation to [facility] [employer]4.Fill in the required sears to create your account. Sign into www.[facility] with your username and password that you created in the above steps to stay up to date. You can then view a summary of results, a summary of your visits, and the ability to download your summaries to your computer or send the information securely to a physician. Remember that your healthcare information is confidential, so carefully consider who you will allow to register on the [email or web address] Patient Portal for access to your information. You can also access the [email or web address] Patient Portal on the [employer]. Simply click on "Health Records" under "HealthData" and then click on the [facility] logo. HOW TO SAFELY DISPOSE OF PRESCRIPTION MEDICATIONS Please use one of the following methods to safely dispose of your unused medications. 1.Use a drug disposal kit: the drug disposal pouch allows you to safely discard your old and unuseddrugs. Ask your nurse to give you one when you are discharged.2.Visit a local take-back location: Many local pharmacies and police departments have programs that collect old and unwanted prescriptiondrugs. Call your local pharmacy or go to http://Send the Trend.Itandi/8F3Te0w to find one close to you.3.Make use of household items: Use cat litter or old coffee grounds to dispose medications if other options arenot available. Mix your drugs with these household products, seal them in an airtight container andthrow it into the garbage. Call [facility]: [phone] to be sure your drugs can be disposed of in this way. Some medicines may require a different approach.4.Never flush your medications down the toilet. IF YOU HAVE BEEN PRESCRIBED AN OPIOID FOR PAIN If you have been prescribed an opioid (such as hydrocodone, oxycodone or morphine), it is critical to understand the possible side effects and risks of opioid pain medications. Even when taken as directed, opioids can have several side effects including: Tolerance, meaning you might need to take more of a medication for the same pain relief. Nausea, vomiting and/or constipation. Sleepiness, dizziness, dry mouth, confusion, depression or itching. Physical dependence, meaning you have withdrawal symptoms when a medication is stopped, can develop within a few days. KNOW YOUR RESPONSIBILITIES It is important to know exactly how much and how often to take the opioid pain medications you are prescribed. Never take opioids in higher amounts or more often than prescribed. Do not combine opioids with alcohol or other drugs that cause drowsiness, such as benzodiazepines, also known as benzos,including diazepam and alprazolam, muscle relaxants or sleep aids. Never sell or share prescriptionopioids. This is illegal. Store opioids in a secure place and out of reach of others (including children, family, friends and visitors). The last page of this document has been signed and retained as a CHART COPY [employer] Patient Education Materials Hemorrhage Hypertension 7b- Depression and Blues (05/2020) (CUSTOM) 7- Home Care Instructions After Delivery 09/2019 (CUSTOM) Medication Leaflets My discharge plan and instructions have been reviewed and explained to me and I,CARLOS FRANCOIS understand my current condition and have read and understand these discharge instructions. I have received a written copy of the plan/instructions. If I have questions, I am aware that I should contact my doctor. Patient/Forming Process Worker Signature: Date/Time: Relationship to Patient: Witness Name/Signature: [facility]Time[id number] Discharge Instructions Thank you for allowing [facility] to assist you with your healthcare needs. The following is importantdischarge information regarding your hospital visit. Your Care Team PHYSICIAN, NONE What to do next Follow Up Appointments Follow Up with KULDEEP LONDON MD, Obstetrics & Gynecology When In 6 weeks Where: [address] [facility] [place] [address]- Someone Will Contact You Regarding These Home Health Referrals No home referrals have been ordered for you. No one will call you. The Following Activity and Diet Have Been Ordered for You Discharge Activity - Ordered -- Lifting Restricted less than 10 pounds May Shower Sexual Bliss Restricted, 05/12/23 8:10:00 EDT Discharge Diet - Ordered -- No changes were made to your diet during your hospital stay. Please resume your pre hospitalization diet on discharge., 05/12/23 8:10:00 EDT The Following Equipment Has Been Ordered for You No qualifying data available. The Following Treatments Have Been Arranged for You Discharge Labs No qualifying data available. Discharge Radiology No qualifying data available. Other Therapies No qualifying data available. Allergies NKA Medications Please ask your primary doctor or pharmacist before taking any other medication not listed, including over the counter drugs, herbal medications, vitamins and or supplements as they may interact withyour home medications. What How Much When Instructions Last Dose Unchanged ibuprofen (ibuprofen 600 mg oral tablet) 1 tab(s) by mouth Every 6 hours as needed for for pain Take with food or milk. Unchanged multivitamin, (PNV Select) by mouth Once a day What How Much When Comments Stop Taking docusate (Colace 100 mg oral capsule) 1 cap by mouth Two (2) times a day as needed for for constipation Stop Taking ferrous sulfate (IRON (ferrous sulfate 325 mg) 65 mg oral tablet) 1 tab(s) by mouth Twice daily with meals Take with food. Please take this list to your next doctor s visit. Bring all medications you take, including over the counter medications, herbals and other supplements with you to your doctor s visit. Patients and families are reminded to discard old lists and to update any records with all medication providers or retail pharmacies. Education Materials Hemorrhage hemorrhage is excessive blood loss after childbirth. Vaginal bleeding after delivery is normal and should be expected. Bleeding (lochia) will occur for several days after childbirth. This can be expected with normal vaginal deliveries and deliveries. However, hemorrhage is a potentially serious condition. What are the causes? This condition is caused by: A loss of muscle tone in the uterus after childbirth. This can be caused by: ? An abnormal placenta. ? Infection. ? Bladder swelling (distension). Failure to deliver all of the placenta or the retention of clots. Wounds in the canal caused by delivery of the fetus. Infection of the uterus. Infection of tissue around the fetus. A tear in the uterus. Tearing of the vagina or cervix during delivery. A maternal bleeding disorder that prevents blood from clotting (rare). What increases the risk? This condition is likely to develop in people who: Have a history of hemorrhage. Had a delivery that lasted longer than usual. Have an excess of amniotic fluid in the amniotic sac (polyhydramnios), leading the uterus to stretch too much. Have delivered quintuplets or more babies. Had high blood pressure, seizures, or coma during . Had a condition called preeclampsia or eclampsia during . Had problems with the placenta. Had complications during labor or delivery. Are obese. Are 40 years old or older. Are or . What are the signs or symptoms? Symptoms of this condition include: Passing large clots or pieces of tissue. These may be small pieces of placenta left after delivery. Soaking more than one sanitary pad per hour for several hours. Heavy, bright-red bleeding that occurs 4 days or more after delivery. Discharge that has a bad smell. An unexplained fever. Nausea or vomiting. Pain or swelling near the vagina or perineum. A drop in blood pressure. Lightheadedness or fainting. Shortness of breath. A fast heart rate that happens with very little activity. Signs of shock, such as: ? Blurry vision. ? Chills. ? Dizziness. ? Weakness. How is this diagnosed? This condition may be diagnosed based on: Your symptoms. A physical exam of your perineum, vagina, cervix, and uterus. Tests, including: ? Blood pressure and pulse measurements. ? Blood tests. ? Blood clotting tests. ? Ultrasonography. How is this treated? Treatment for this condition depends on the severity of your symptoms. It may include: Uterine massage. Medicines to help the uterus contract. Blood transfusions. Fluids given through the vein. A medical procedure to compress arteries supplying the uterus. Sometimes bleeding occurs if portions of the placenta are left behind in the uterus after delivery.If this happens, a curettage or scraping of the inside of the uterus must be done (rare). This usually stops the bleeding. If curettage does not stop the bleeding, surgery may be done to remove the uterus (hysterectomy), but this rarely occurs. If bleeding is due to clotting or bleeding problems that are not related to the , other treatments may be needed. Follow these instructions at home: Limit your activity as directed by your health care provider. Your health care provider may order bed rest (getting up to go to the bathroom only) or may allow you to continue light activity. Keep track of the number of pads you use each day and how soaked (saturated) they are. Write down this information. Do not use tampons. Do not douche or have sexual intercourse until your health care provider approves. Drink enough fluids to keep your urine clear or pale yellow. Get enough rest. Eat foods that are rich in iron, such as spinach, red meat, and legumes. Take any ldmb-kjs-lvzwwmv and prescription medicines only as told by your health care provider. Keep all follow-up visits as told by your health care provider. This is important. Get help right away if: You experience severe cramps in your stomach, back, or abdomen. You have a fever. You pass large clots or tissue. Save any tissue for your health care provider to look at. Your bleeding increases. You have heavy bleeding that soaks one pad per hour for 2 hours in a row. You faint or become dizzy, weak, or lightheaded. Your sanitary pad count per hour is increasing. You are urinating less than usual or not at all. You have shortness of breath. Your heart rate is faster than usual. You have sudden chest pain. This information is not intended to replace advice given to you by your health care provider. Make sure you discuss any questions you have with your health care provider. Document Released: 10/26/2004 Document Revised: 07/19/2018 Document Reviewed: 03/09/2017 [employer] Patient Education 2020 [employer] Hypertension hypertension is high blood pressure that remains higher than normal after childbirth. You may not realize that you have hypertension if your blood pressure is not being checked regularly. In most cases, hypertension will go away on its own, usually within a week of delivery. However, for some women, medical treatment is required to prevent serious complications, such as seizures or stroke. What are the causes? This condition may be caused by one or more of the following: Hypertension that existed before (chronic hypertension). Hypertension that comes on as a result of (gestational hypertension). Hypertensive disorders during (preeclampsia) or seizures in women who have high blood pressure during (eclampsia). A condition in which the liver, platelets, and red blood cells are damaged during (HELLP syndrome). A condition in which the thyroid produces too much hormones (hyperthyroidism). Other rare problems of the nerves (neurological disorders) or blood disorders. In some cases, the cause may not be known. What increases the risk? The following factors may make you more likely to develop this condition: Chronic hypertension. In some cases, this may not have been diagnosed before . Obesity. Type 2 diabetes. Kidney disease. History of preeclampsia or eclampsia. Other medical conditions that change the level of hormones in the body (hormonal imbalance). What are the signs or symptoms? As with all types of hypertension, hypertension may not have any symptoms. Depending on how high your blood pressure is, you may experience: Headaches. These may be mild, moderate, or severe. They may also be steady, constant, or sudden in onset (thunderclap headache). Changes in your ability to see (visual changes). Dizziness. Shortness of breath. Swelling of your hands, feet, lower legs, or face. In some cases, you may have swelling in more than one of these locations. Heart palpitations or a racing heartbeat. Difficulty breathing while lying down. Decrease in the amount of urine that you pass. Other rare signs and symptoms may include: Sweating more than usual. This lasts longer than a few days after delivery. Chest pain. Sudden dizziness when you get up from sitting or lying down. Seizures. Nausea or vomiting. Abdominal pain. How is this diagnosed? This condition may be diagnosed based on the results of a physical exam, blood pressure measurements, and blood and urine tests. You may also have other tests, such as a CT scan or an MRI, to check for other problems of hypertension. How is this treated? If blood pressure is high enough to require treatment, your options may include: Medicines to reduce blood pressure (antihypertensives). Tell your health care provider if you are or if you plan to breastfeed. There are many antihypertensive medicines that are safe to take while . Stopping medicines that may be causing hypertension. Treating medical conditions that are causing hypertension. Treating the complications of hypertension, such as seizures, stroke, or kidney problems. Your health care provider will also continue to monitor your blood pressure closely until it is within a safe range for you. Follow these instructions at home: Take urcn-xyu-gphgdrw and prescription medicines only as told by your health care provider. Return to your normal activities as told by your health care provider. Ask your health care provider what activities are safe for you. Do not use any products that contain nicotine or tobacco, such as cigarettes and e-cigarettes. If you need help quitting, ask your health care provider. Keep all follow-up visits as told by your health care provider. This is important. Contact a health care provider if: Your symptoms get worse. You have new symptoms, such as: ? A headache that does not get better. ? Dizziness. ? Visual changes. Get help right away if: You suddenly develop swelling in your hands, ankles, or face. You have sudden, rapid weight gain. You develop difficulty breathing, chest pain, racing heartbeat, or heart palpitations. You develop severe pain in your abdomen. You have any symptoms of a stroke. "BE FAST" is an easy way to remember the main warning signs of astroke: ? B - Balance. Signs are dizziness, sudden trouble walking, or loss of balance. ? E - Eyes. Signs are trouble seeing or a sudden change in vision. ? F - Face. Signs are sudden weakness or numbness of the face, or the face or eyelid drooping on one side. ? A - Arms. Signs are weakness or numbness in an arm. This happens suddenly and usually on one side of the body. ? S - Speech. Signs are sudden trouble speaking, slurred speech, or trouble understanding what peoplesay. ? T - Time. Time to call emergency services. Write down what time symptoms started. You have other signs of a stroke, such as: ? A sudden, severe headache with no known cause. ? Nausea or vomiting. ? Seizure. These symptoms may represent a serious problem that is an emergency. Do not wait to see if the symptoms will go away. Get medical help right away. Call your local emergency services (911 in the [place] Do not drive yourself to the hospital. Summary hypertension is high blood pressure that remains higher than normal after childbirth. In most cases, hypertension will go away on its own, usually within a week of delivery. For some women, medical treatment is required to prevent serious complications, such as seizures orstroke. This information is not intended to replace advice given to you by your health care provider. Make sure you discuss any questions you have with your health care provider. Document Released: 04/09/2015 Document Revised: 09/12/2019 Document Reviewed: 05/27/2018 [employer] Patient Education 2020 [employer]. William Depression and Blues All mothers are at risk of developing depression or the " blues." These mood changes can occur right after giving , or they may occur many months after giving . blues or depression can be mild or severe. Additionally, depression can goaway rather quickly, or it can be a long-term condition. CAUSES Raised hormone levels and the rapid drop in those levels are thought to be a main cause of depression and blues. A number of hormones change during and after . Estrogenand progesterone usually decrease right after delivery. The levels of thyroid hormone and various cortisol steroids also rapidly drop. Other factors that play a role in these mood changes include major life events and genetics. RISK FACTORS If you have any of the following risks for blues or depression, know what symptoms to watch out for during the period. Risk factors that may increase the likelihood of getting blues or depression include: Having a personal or family history of depression. Having depression while being . Having premenstrual mood issues or mood issues related to oral contraceptives. Having a lot of life stress. Having marital conflict. Lacking a social support network. Having health problems, such as diabetes. SIGNS AND SYMPTOMS Symptoms of blues include: Brief changes in mood, such as going from extreme happiness to sadness. Decreased concentration. Difficulty sleeping. Crying spells, tearfulness. Irritability. Anxiety. Symptoms of depression typically begin within the first month after giving . These symptoms include: Difficulty sleeping or excessive sleepiness. Marked weight loss. Agitation. Feelings of worthlessness. Lack of interest in activity or food. psychosis is a very serious condition and can be dangerous. Fortunately, it is rare. Displaying any of the following symptoms is cause for immediate medical attention. Symptoms of psychosis include: Hallucinations and delusions. Bizarre or disorganized behavior. Confusion or disorientation. DIAGNOSIS A diagnosis is made by an evaluation of your symptoms. There are no medical or lab tests that lead to a diagnosis, but there are various questionnaires that a health care provider may use to identifythose with blues, depression, or psychosis. Often, a screening tool called the [place] Depression Scale is used to diagnose depression in the period. TREATMENT blues usually goes away on its own in 1 2 weeks. Social support is often all that is needed. You will be encouraged to get adequate sleep and rest. Occasionally, you may be given medicinesto help you sleep. depression requires treatment because it can last several months or longer if it is not treated. Treatment may include individual or group therapy, medicine, or both to address any social,physiological, and psychological factors that may play a role in the depression. Regular exercise, a healthy diet, rest, and social support may also be strongly recommended. psychosis is more serious and needs treatment right away. Hospitalization is often needed. HOME CARE INSTRUCTIONS Get as much rest as you can. Exercise regularly. Some women find yoga and walking to be beneficial. Eat a balanced and nourishing diet. Do little things that you enjoy. Have a cup of tea, take a bubble bath, read your favorite magazine, or listen to your favorite music. Avoid alcohol. Ask for help with manual machinist, cooking, grocery shopping, or running errands as needed. Do nottry to do everything. Talk to people close to you about how you are feeling. Get support from your partner, family members, and friends. Try to stay positive in how you think. Think about the things you are grateful for. Do not spend a lot of time alone. Only take xrxg-yba-kdtavod or prescription medicine as directed by your health care provider. Keep all your appointments. Let your health care provider know if you have any concerns. SEEK MEDICAL CARE IF: You are having a reaction to or problems with your medicine. SEEK IMMEDIATE MEDICAL CARE IF: You have suicidal feelings. You think you may harm yourself or someone else. MAKE SURE YOU: Understand these instructions. Will watch your condition. Will get help right away if you are not doing well or get worse. Resource: [facility] Patient Information 2015 [facility] [facility]. This information is not intended to replace advicegiven to you by your health care provider. Make sure you discuss any questions you have with your health care provider. Home Care Instructions After Delivery After discharge you may discover that you still have questions about body changes, activity, and care during the next few weeks. The following information should be helpful in answering many of your questions. ACTIVITY Resume your daily activities at home gradually. Allow time for rest periods during the day Avoid heavy lifting (more than 10 pounds/4.5 kilograms) and strenuous work or sports. If you had a , you should refrain from vacuuming, stair-climbing, and driving a car for 2 to 3 weeks. VAGINAL FLOW & RETURN OF MENSES Vaginal flow may continue for 4 to 6 weeks after delivery. 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 Bright red and increased flow may reoccur if you have been too active. Lie down, rest, and call your caregiver if you are soaking more than 1 pad an hour or passing largeclots. Menstrual period will usually return 6 to 8 weeks after delivery. PERINEAL CARE Use the mirna-bottle and change sanitary pads each time you go to the bathroom. Use towelettes in place of toilet paper until stitches are healed. Continue to use tucks and/or spray dermoplast. Lidocaine cream for episiotomy pain with your care givers approval. Do not use tampons or douches until vaginal bleeding has stopped (about 4 weeks). No Sexual intercourse until seen by physician. INCISION (CUT BY THE SURGEON) CARE Following , shower as desired but try to keep your incision dry. A small amount of clear or pink drainage is normal. The incision site will be tender for several weeks. Take prescription or gqzk-fub-adfaucd medications for pain with your care givers approval. Contact your caregiver if the drainage increases, becomes foul smelling, the incision reddens, or you develop a fever. BOWELS/HEMORRHOIDS Try to avoid constipation by increasing the fluids and fiber in your diet. Drink at least 6 to 8 glasses of non-caffeinated fluids per day. Include whole grains, raw fruits and vegetables in your diet. Avoid straining when trying to pass a stool. Miqd-xwr-ixodnpu medications, stool softeners, can be used. Check with your caregiver. NUTRITION Eat a well-balanced diet that includes the basic food groups. Do not try to lose weight quickly by drastically cutting back on calories. EXERCISES Kegel exercises Start this exercise right after delivery. You can do it while standing, sitting, or lying down. Tighten your stomach muscles and the muscles surrounding your canal. Hold for a few seconds and then relax. Do Kegel exercises when you take a sitz bath. Repeat often during the day. Choose specialtimes during the day when you will remember to do this (for example, when using the bathroom, turning the water faucet on, etc.). Repeat 5 times each time. Make Kegel exercises a part of your daily routine to maintain the tone of muscles that support your vagina, bladder, and bowels. SELF BREAST EXAMINATION A self breast exam needs to be an important part of every woman's self-care. Do your self breast exam once a month, 5 to 7 days after your period begins, unless you are . Do self breast exams at the same time of the month each month, on a day of your choice. Any lump, bump or discharge should be reported to your caregiver. SEEK MEDICAL CARE IMMEDIATELY IF YOU NOTICE: Sanitary pad soaked with blood in 1 hour or less. Severe lower abdominal pain or cramping. Foul-smelling discharge from vagina. Increased rather than decreased pain around stitches and/or swelling, redness or hardness in area. Pain and/or redness in calf of the leg. Nausea with vomiting for 12 hours. Sudden, severe chest pain. Shortness of breath. Painful urination. Severe headache. Area of the breast is red and sore and you have a fever. (You may feel like you have flu symptoms.) Additional Information VACCINATE! IT SAVES LIVES! Members of the community who have not yet received the COVID-19 vaccine and would like to receive it can visit one of [facility] vaccine clinics. There are many vaccine clinic locations within the [facility]. For locations and available times, please visit [email or web address].[email or web address]/. It is important to note that some COVID mobile vaccine clinics are held outdoors and may be canceled in rainy or stormy conditions. To learn more about pediatric vaccinations (ages 5-11), we invite you to visit the [facility] webpage. [email or web address]/[email or web address] learn more about the COVID-19 vaccine, we invite you to visit the CDC website for a list of frequently asked questions. https://www.cdc.gov/coronavirus/2019-ncov/vaccines/faq.html [employer] Patient Portal Access Instructions: Stay connected with your healthcare team and access your personal medical information anytime with the [email or web address] Patient Portal.If you would like a full copy of your medical records, please contact the [facility] Medical Records Department, Sunday through Sunday between 8a.m. and 4:30p.m. Please follow the directions below to access the portal: 1.Access the email account you provided upon registration to the [facility].2.Look for an invitation email from [facility].3.Open the email and access the invitation link: Accept Invitation to [facility] [employer]4.Fill in the required sears to create your account. Sign into www.[facility] with your username and password that you created in the above steps to stay up to date. You can then view a summary of results, a summary of your visits, and the ability to download your summaries to your computer or send the information securely to a physician. Remember that your healthcare information is confidential, so carefully consider who you will allow to register on the [email or web address] Patient Portal for access to your information. You can also access the [email or web address] Patient Portal on the [employer]. Simply click on "Health Records" under "HealthData" and then click on the [employer] logo. HOW TO SAFELY DISPOSE OF PRESCRIPTION MEDICATIONS Please use one of the following methods to safely dispose of your unused medications. 1.Use a drug disposal kit: the drug disposal pouch allows you to safely discard your old and unuseddrugs. Ask your nurse to give you one when you are discharged.2.Visit a local take-back location: Many local pharmacies and police departments have programs that collect old and unwanted prescriptiondrugs. Call your local pharmacy or go to http://bit.Itandi/1H6Jj7l to find one close to you.3.Make use of household items: Use cat litter or old coffee grounds to dispose medications if other options arenot available. Mix your drugs with these household products, seal them in an airtight container andthrow it into the garbage. Call [facility]: [phone] to be sure your drugs can be disposed of in this way. Some medicines may require a different approach.4.Never flush your medications down the toilet. IF YOU HAVE BEEN PRESCRIBED AN OPIOID FOR PAIN If you have been prescribed an opioid (such as hydrocodone, oxycodone or morphine), it is critical to understand the possible side effects and risks of opioid pain medications. Even when taken as directed, opioids can have several side effects including: Tolerance, meaning you might need to take more of a medication for the same pain relief. Nausea, vomiting and/or constipation. Sleepiness, dizziness, dry mouth, confusion, depression or itching. Physical dependence, meaning you have withdrawal symptoms when a medication is stopped, can develop within a few days. KNOW YOUR RESPONSIBILITIES It is important to know exactly how much and how often to take the opioid pain medications you are prescribed. Never take opioids in higher amounts or more often than prescribed. Do not combine opioids with alcohol or other drugs that cause drowsiness, such as benzodiazepines, also known as benzos,including diazepam and alprazolam, muscle relaxants or sleep aids. Never sell or share prescriptionopioids. This is illegal. Store opioids in a secure place and out of reach of others (including children, family, friends and visitors). The last page of this document has been signed and retained as a CHART COPY Signatures Patient Education Materials Hemorrhage Hypertension 7b- Depression and Blues (05/2020) (CUSTOM) 7- Home Care Instructions After Delivery 09/2019 (CUSTOM) Medication Leaflets My discharge plan and instructions have been reviewed and explained to me and IFRANCO EMILY R understand my current condition and have read and understand these discharge instructions. I have received a written copy of the plan/instructions. If I have questions, I am aware that I should contact my doctor. Patient/Forming Process Worker Signature: Date/Time: Relationship to Patient: Witness Name/Signature: [id number] OB Discharge Summary Discharge Diagnosis: ( x ) IUP( ) Preeclampsia( ) Eclampsia ( ) HELLP syndrome( ) Gestational diabetes( ) Chronic HTM ( ) Other Procedures: ( x ) Spontaneous vaginal delivery( ) Vacuum assisted vaginal delivery ( ) Forceps assisted vaginal delivery( ) Vaginal delivery w/tubal ligation ( ) Episiotomy( ) Primary Section ( ) Repeat Section( ) Section w/tubal ligation ( ) D & C( ) Blood patch (x ) Epidural Anesthesia( ) Spinal Anesthesia ( ) Section w/hysterectomy Hospital Course: ( ) Uncomplicated (x ) See progress notes Abnormal Lab/Test Value: ( ) None( x ) See progress notes RH: ( ) N/A (x ) Rh positive ( ) Rh neg ( ) Rhogam given Rubella: ( x ) Rubella immune( ) Rubella rmu-crbfmr-Njkhijn given ( ) Rubella azx-stqako-Vtjpbjc declined Feeding Toribio: (x ) Breast feeding( ) Bottle feeding Consultations/referrals: ( ) None( ) Social Service( ) Home Health ( ) Genetics( ) Perinatology( ) Surgery ( ) Infectious Disease( ) Nutrition( ) Psychiatry (x ) Anesthesiology( ) Neurology( ) Cardiology ( ) Endocrinology( ) Pulmonology( ) Other Disposition: Home Condition on Discharge: Stable Follow-up Care: See discharge instructions Other/Comments: Digitally Signed by KULDEEP LONDON MD on 05/12/2023 08:09 AM [id number] Anesthesiology Consult note Patient: CARLOS FRANCOIS Age: 32 years Sex: Female : 1990 Associated Diagnoses: None Author: DIAMANTE PARK MID LEVEL JAVA DEVELOPER-DATA WAREHOUSING ENGINEER Preoperative Information Anesthesia history Patient's history: negative. Family's history: negative. Review of Systems Ear/Nose/Mouth/Throat: Negative. Respiratory: Negative. Cardiovascular: Negative. Gastrointestinal: Heartburn. Genitourinary: hx bleeding - NCB then spinal for exam under anesthesia. Endocrine: Negative. Musculoskeletal: Negative. Integumentary: Negative. Neurologic: Negative. Reproductive: Para Scoring , Week's Gestation 39.3, EDC 05/15/2023. Tubal: No. Reason for Induction: active labor. Health Status Allergies: Allergic Reactions (Selected) NKA, Allergies (1) ActiveReaction NKANone Documented Current medications: (Selected) Inpatient Medications Ordered Bolus LR 500 mL: 500 mL, IV Bolus, AsDirected, PRN: Other (see order comments) LR 1,000 mL: 125 mL/hr, Intravenous LR 1,000 mL: 125 mL/hr, Intravenous Oxytocin for IV (mL/hr) 20 unit(s) + LR Premix Diluent 1,000 mL: after delivery of placenta, see order comments, Intravenous Pepcid: 20 mg, 1 tab(s), Oral, Once, PRN: Heartburn Pepcid: 20 mg, 2 mL, IV Push, qDay, PRN: Dyspepsia Tylenol: 1,000 mg, 2 tab(s), Oral, Once, PRN: as needed for pain Zofran: 4 mg, 2 mL, IV Push, q4h, PRN: Nausea/Vomiting ondansetron: 4 mg, 2 mL, IV Push, Once, PRN: as needed for nausea/vomiting Prescriptions Prescribed Colace 100 mg oral capsule: 100 mg, 1 cap(s), Oral, BID, PRN: for constipation, 20 cap(s), 0 Refill(s) ibuprofen 600 mg oral tablet: 600 mg, 1 tab(s), Oral, q6h, Take with food or milk., PRN: for pain, 40 tab(s), 0 Refill(s) Documented Medications Documented IRON (ferrous sulfate 325 mg) 65 mg oral tablet: 325 mg, 1 tab(s), Oral, BIDM, Take with food., 60 tab(s), 3 Refill(s) PNV Select: Oral, qDay, 0 Refill(s), Medications (9) Active Scheduled: (0) Continuous: (3) Lactated Ringers 1,000 mL 1,000 mL, Intravenous, 125 mL/hr Lactated Ringers 1,000 mL 1,000 mL, Intravenous, 125 mL/hr Oxytocin 20 units in Lactated Ringers 1000 mL 20 unit(s) + LR Premix Diluent 1,000 mL 1,000 mL, Intravenous PRN: (6) acetaminophen 500 mg Tablet 1,000 mg 2 tab(s), Oral, Once famotidine 20 mg tablet 20 mg 1 tab(s), Oral, Once famotidine 20 mg/2 mL vial 20 mg 2 mL, IV Push, qDay Lactated Ringers Injection 500 mL * Bolus * 500 mL, IV Bolus, AsDirected ondansetron 2 mg/ 1 mL 2 mL INJ 4 mg 2 mL, IV Push, q4h ondansetron 2 mg/ 1 mL 2 mL INJ 4 mg 2 mL, IV Push, Once Problem list: Medical / SNOMED CT [id number] / Confirmed / SNOMED CT [id number] / Confirmed / SNOMED CT [id number] / Confirmed, Active Problems (3) Histories Past Medical History: Resolved ([id number]): Onset on 08/07/2019 at 28 years. Resolved on 05/15/2020 at 29 years. Family History: No family history items have been selected or recorded. Procedure history: Repair ([id number]). Comments: 05/11/2023 1:39 EDT - Xi Lima RN Repair in OR after delivery Bricelyn tooth ([id number]). Social History Social & Psychosocial Habits Alcohol 05/11/2023 Use: Never Substance Abuse 05/11/2023 Use: Never Tobacco 05/11/2023 Tobacco Use: Never (less than 100 in l . Physical Examination Vital Signs 05/11/2023 1:40 EDT Temperature Oral 36.5 DegC Heart Rate Monitored 58 bpm LOW Respiratory Rate 16 br/min Systolic Blood Pressure Non-Invasive 141 mmHg HI Diastolic Blood Pressure Non-Invasive 76 mmHg Reason For Taking VItal Signs Routine 05/11/2023 1:04 EDT Temperature Oral 36.7 DegC Apical Heart Rate 63 bpm Respiratory Rate 18 br/min Systolic Blood Pressure Non-Invasive 131 mmHg Diastolic Blood Pressure Non-Invasive 79 mmHg Reason For Taking VItal Signs Admission Vital Signs(last 24 hrs) Last Charted Temp Oral36.5 DegC (MAY 11:40) Heart Rate MonitoredL 58bpm (MAY 11:40) Resp Rate 16 br/min (MAY 11:40) SBPH 141mmHg (MAY 1140) DBP76 mmHg (SEP 22 01:40) BMI32.36 (MAY 11 01:34) Measurements from flowsheet : Measurements 05/11/2023 1:34 EDT Height 177.8 cm Admission Weight 102.3 kg [place] Body Weight 68.50 kg BSA Admission 2.2 Body Mass Index 32.36 kg/m2 05/11/2023 1:08 EDT Height 177.8 cm Admission Weight 102.3 kg [place] Body Weight 68.50 kg BSA Admission 2.2 Body Mass Index 32.36 kg/m2 Pain assessment: Pain Assessment 05/11/2023 1:04 EDT Primary Pain Intensity 6 Pain Scale Type 0-10 Pain scale . General: Alert and oriented, No acute distress. Airway: Normal temporomandibular joint mobility, Nares patent, Normal mouth, No damage to dentition, Normal throat, Normal neck range of motion, Trachea midline. Mallampati classification: II (soft palate, fauces, uvula visible). Dentition Evaluation: Intact, Own teeth. Neurologic: Alert, Oriented, Normal sensory, Normal motor function, No focal deficits, Gag reflex normal. Review / Management Results review: Labs (Last four charted values) WBC 8.7(MAY 11) Hgb L 11.8(MAY 11) Hct 36.1(MAY 11) Plt 275(MAY 11) , Lab results 05/11/2023 2:20 EDT Monitoring Annotations Patient Repositioned to far left side 05/11/2023 2:17 EDT Epidural Start 05/11/2023 2:17 Monitoring Annotations Patient Repositioned to left tilt 05/11/2023 2:12 EDT Epidural Test Dose Time 05/11/2023 2:12 05/11/2023 2:11 EDT Epidural Test Dose Time 05/11/2023 2:11 05/11/2023 2:06 EDT Epidural Patient Position Side of bed, leaning forward with support Epidural Placed By DIAMANTE PARK APRN-PILAR 05/11/2023 1:49 EDT Lactated Ringers Injection Begin Bag 1,000 mL mL 05/11/2023 1:45 EDT WBC 8.7 10^3/mcL RBC 4.61 10^6/mcL Hgb 11.8 G/dL LOW Hct 36.1 % MCV 78.4 fL LOW MCH 25.5 pg LOW MCHC 32.6 G/dL RDW 16.8 % HI Platelet 275 10^3/mcL MPV 8.8 fL Neutrophil % 58.8 % Lymphocyte % 30.8 % Monocyte % 8.7 % Eosinophil % 0.6 % Basophil % 1.1 % Neutrophil, Absolute 5.1 10^3/mcL Lymphocyte, Absolute 2.7 10^3/mcL Monocyte, Absolute 0.8 10^3/mcL Eosinophil, Absolute 0.1 10^3/mcL Basophil, Absolute 0.1 10^3/mcL 05/11/2023 1:40 EDT Temperature Oral 36.5 DegC Heart Rate Monitored 58 bpm LOW Respiratory Rate 16 br/min Systolic Blood Pressure Non-Invasive 141 mmHg HI Diastolic Blood Pressure Non-Invasive 76 mmHg Reason For Taking VItal Signs Routine Heart Rhythm Regular Oxygen Saturation 98 % Wrist Left 05/11/2023 20 gauge Peripheral IV Activity: Insert new site Peripheral IV Dressing Condition: Clean, Dry, Intact Peripheral IV Dressing Activity: Transparent dressing Peripheral IV Line Status/Patency: Flushes easily, Continuous infusion, Good blood return Peripheral IV Line Care: Secured with tape Peripheral IV Equipment: IV Pump 05/11/2023 1:35 EDT Notify date/time 05/11/2023 1:35 Provider Notified SALIMA DHILLON MD Notification Method Phone Details Communicated pt. 6-7cm bulging bag Person Reporting Result(s) Shimon Details of Results Received if pt desires epi, get epi and call if she doesnt get it within 30 minutes. 05/11/2023 1:34 EDT Blood Type, External B positive Rubella, External Immune HIV Antibodies, External Negative Group B Strep, External Negative Group B Strep Date Performed 04/18/2023 Hepatitis B, External Negative Hepatitis B Date Performed 10/03/2022 RPR, External Nonreactive Designated Person #1 We May Share [facility] Chevy Francois [phone] Designated Person #1 Relationship Significant other Privacy Restrictions Requested None Height 177.8 cm Admission Weight 102.3 kg [place] Body Weight 68.50 kg BSA Admission 2.2 Body Mass Index 32.36 kg/m2 Expected Outcome Live Patient Type Inpatient Thrombosis Risk Factors (1) or post- less than 1 month Thrombosis Risk Factor Add'l Assessment NA Thrombosis Risk Score 1 Status Yes Risk Factors, Antepartum Current Preg None Movement Present Vaginal bleeding No PPH Risk Low risk for hemorrhage PPH Low Risk Factors Tellez , Less than 4 previous deliveries Feeding Breast milk Anesthesia/Pain Medication During Labor Epidural/Spinal Baby For Adoption No Surrogate No Tubal Sterilization Planned No Discharge Physician Elizabeth Lewis Written Plan No WIC Participant No Safe Sleep Environment for Baby Yes Safe Sleep Environment Outside Home Yes Maternal Transport No Thoughts of Harming Others - History No Thoughts of Suicide - History No Coping Effective Emotional Abuse History Denies Physical Abuse History Denies Sexual Abuse Denies Cultural/Spiritual Practices None Hospital Clergy to Visit Patient Verbalizes No Spiritual Needs Financial Concerns Re: Hospital/Disch No Living Situation Home independently Current Home Treatments None Professional Skilled Services None Special Services and Community Resources None Advanced Directives No - refuses information Infectious Disease Symptoms Patient states no symptoms Infectious Disease Recent Exposure No Alcohol and Drug Use No Employee of Institutional Living No Health Care Employee Yes History of Exposure to TB No History of Positive Chest X-Ray for TB No History of Positive TB Skin Test No Homeless No Known Immunosuppression No Recent Immigrant No Resident of Institutional Living No Bloody Sputum No Fatigue No Fever No Loss of Appetite No Night Sweats No Persistent Cough > 3 Weeks No Weight Loss No Preferred Spoken Language Salvadorean Preferred Written Language Salvadorean Teaching Evaluation Verbalizes/Nonverbally indicates understanding Safety Brochure Information Reviewed Yes William Welcome Video Viewed Yes Chief Complaint Labor Mode of Arrival Ambulatory Accompanied by Spouse Information Given by Patient Emergency Contact Number Chevy Francois [phone] Reason For Visit OB Labor check Belongings At Bedside Cell phone, Pants, Shirt, Shoes, Undergarments Personal Home Medications Received No home medications were brought in Belongings Sent Home None Belongings to Security/Secured in Dept None Discharge To, Anticipated Home independently Other Anticipated Needs After Discharge No Anticoagulants Taken In Past 6 Wks. No Prev Test Positive/Diagnosis w/COVID-19 No Current Quarantine/Isolated any Illness No Any Contact with Sick Animals/Birds No Traveled Anywhere in Last 30 Days No Yes Able To Drink Order Detail Yes Able To Sign Consents Order Detail Yes Code Status Order Detail Full code IV Order Detail No Dialysis Schedule Order Detail N/A Has Diabetes Order Detail No Isolation Precautions Order Detail None Nurse Collect Order Detail 1 Oxygen Order Detail No Order Detail Yes Prior Valve Replacement Order Detail No Transport Mode Order Detail Ambulatory Anesthesia/Transfusions Prior anesthesia Admission Note-Nursing Patient History OB (Modified) 05/11/2023 1:29 EDT Notify date/time 05/11/2023 1:29 Provider Notified SALIMA DHILLON MD Notification Method Pager 05/11/2023 1:17 EDT OBHx Para 1 OBHx Para Full Term 1 OBHx Living Children 1 05/11/2023 1:13 EDT OBHx 2 05/11/2023 1:08 EDT Height 177.8 cm Admission Weight 102.3 kg [place] Body Weight 68.50 kg BSA Admission 2.2 Body Mass Index 32.36 kg/m2 Expected Outcome Live Status Yes Risk Factors, Antepartum Current Preg None Movement Present Vaginal bleeding No Maternal Transport No Thoughts of Harming Others - History No Thoughts of Suicide - History No Emotional Abuse History Denies Physical Abuse History Denies Sexual Abuse Denies Advanced Directives No - refuses information Infectious Disease Symptoms Patient states no symptoms Infectious Disease Recent Exposure No Alcohol and Drug Use No Employee of Institutional Living No Health Care Employee Yes History of Exposure to TB No History of Positive Chest X-Ray for TB No History of Positive TB Skin Test No Homeless No Known Immunosuppression No Recent Immigrant No Resident of Institutional Living No Bloody Sputum No Fatigue No Fever No Loss of Appetite No Night Sweats No Persistent Cough > 3 Weeks No Weight Loss No Preferred Spoken Language Salvadorean Preferred Written Language Salvadorean Chief Complaint ROL Mode of Arrival Ambulatory Accompanied by Spouse Information Given by Patient Emergency Contact Number Chevy Francois [phone] Belongings At Bedside Cell phone, Pants, Shirt, Shoes, Undergarments Personal Home Medications Received No home medications were brought in Belongings Sent Home None Belongings to Security/Secured in Dept None Prev Test Positive/Diagnosis w/COVID-19 No Current Quarantine/Isolated any Illness No Any Contact with Sick Animals/Birds No Traveled Anywhere in Last 30 Days No Yes Able To Drink Order Detail Yes Able To Sign Consents Order Detail Yes Code Status Order Detail Full code IV Order Detail No Dialysis Schedule Order Detail N/A Has Diabetes Order Detail No Isolation Precautions Order Detail None Nurse Collect Order Detail 0 Oxygen Order Detail No Order Detail Yes Prior Valve Replacement Order Detail No Transport Mode Order Detail Ambulatory Admission Note-Nursing Patient History OB Triage 05/11/2023 1:04 EDT Temperature Oral 36.7 DegC Apical Heart Rate 63 bpm Respiratory Rate 18 br/min Systolic Blood Pressure Non-Invasive 131 mmHg Diastolic Blood Pressure Non-Invasive 79 mmHg Reason For Taking VItal Signs Admission Primary Pain Intensity 6 Pain Scale Type 0-10 Pain scale Oxygen Saturation 100 % . Documentation reviewed: Current records, Nurses notes. Assessment and Plan [place] Society of Anesthesiologists (ASA) physical status classification: Class II. Anesthetic Preoperative Plan Premedication: None. Anesthetic technique: Epidural. Regional: Epidural. Postoperative pain management: Per surgeon. Risks discussed: nausea, vomiting, headache, sore throat, dental injury, hypotension, allergic reaction, serious complications, PDPH, GETA discussed for emergency. Informed consent: signed by patient. Digitally Signed by DIAMANTE PARK on 05/11/2023 02:26 AM [facility] No data available for this section [facility]* Diagnosis [facility]odynia [facility] Diagnosis Unspecified lump in the right breast, unspecified quadrant documented in this encounter [facility] note* Diagnosis Onset Date Resolution Status Admit Date Breast mass, right acute Septem 2024 1:45pm [facility] Work Phone: Reason for referral (narrative)No reason for referral information availableLompoc [facility] Work Phone: Advance Directives Documents on File Type Date Recorded Patient Forming Process Worker Expl anation ACP-Advance Directive ACP-Power of Ice Guard Tester Summary Purpose Family History Relationship Condition Age at Onset Recorded Date/T susie grandmother Malignant neoplasm of breast Unknown father Cardiac disease Unknown Hypertension Unknown Chief Complaint and Reason for Visit Chief Complaint Admit Date ABN YOSI May 12, 2025 8:39am BIRADS 4 May 18, 2025 1:45pm Reason for Visit Admit Date Breast mass, right May 18, 2025 1:45pm Additional Source Comments Care Teams (unrecognized sec tion and content) Microsoft Access Developer Relationship Specialty Start Date End Date Sylvia Hansen MD [address] [place] [address] [phone] PCP - General Family Medicine 03/07/18 Microsoft Access Developer Relationship Specialty Start Date End Date Sylvia Hansen MD [address] [place] [phone] PCP - General Family Medicine 03/07/18 Microsoft Access Developer Relationship Specialty Start Date End Date Sylvia Hansen MD [address] [place] [address] [id number] PCP - General Family Medicine 03/07/18 Microsoft Access Developer Relationship Specialty Start Date End Date Sylvia Hansen MD [address] [place] [address] [id number] PCP - General Family Medicine 03/07/18 Microsoft Access Developer Relationship Specialty Start Date End Date Sylvia Hansen MD [address] [place] [address] [phone] PCP - General 03/07/18 Microsoft Access Developer Relationship Specialty Start Date End Date Sylvia Hansen MD [address] [place] [phone] PCP - General 03/07/18 Team Status: Active Member Role/Relationship Status Dates Dr. Sylvia Hansen MD Primary care physician Activ e Team Status: Active Member Role/Relationship Status Dates Dr. Kuldeep London MD Attending physician Active Start: May 12, 2025 Dr. Kuldeep London MD Referring Provider Active Start: May 12, 2025 Dr. Sylvia Hansen MD Primary care physician Activ e Start: May 12, 2025 Team Status: Inactive Member Role/Relationship Status Dates Dr. Sylvia Hansen MD Primary care physician Activ e Start: May 18, 2025 End: May 18, 2025 Dr. Sylvia Hansen MD Referring Provider Active Start: May 18, 2025 End: May 18, 2025 Dr. Kuldeep Pardo MD Attending physician Active Start: May 18, 2025 End: May 18, 2025 Team Status: Inactive Member Role/Relationship Status Dates Dr. Kuldeep London MD Attending physician Active Start: May 12, 2025 End: May 12, 2025 Dr. Kuldeep London MD Referring Provider Active Start: May 12, 2025 End: May 12, 2025 Dr. Sylvia Hansen MD Primary care physician Activ e Start: May 12, 2025 End: May 12, 2025 INFORMATION SOURCE (unrecogn ized section and content) DATE CREATED AUTHOR 06/15/2022 [employer] [facility] [employer] DATE CREATED AUTHOR AUTHOR'S ORGANIZ ATION 05/31/2023 [facility] ([place]) DATE CREATED AUTHOR AUTHOR'S ORGANIZ ATION 10/31/2024 [facility] DATE CREATED AUTHOR AUTHOR'S ORGANIZ ATION 05/22/2025 [facility] Goals (unrecognized section and content) Goals may be documented in a n alternate section FOR RECORDS PERTAINING TO PATIENTS WHO ARE OR HAVE BEEN ENROLLED IN A CHEMICAL DEPENDENCY/SUBSTANCEABUSE PROGRAM, SOME INFORMATION MAY BE OMITTED. This clinical summary was aggregated from multiple sources. Caution should be exercised in using it in the provision of clinical care. This summary normalizes information from multiple sources, and as a consequence, information in this document may materially change the coding, format and clinical context of patient data. In addition, data may be omitted in some cases. CLINICAL DECISIONS SHOULD BE BASED ON THE PRIMARY CLINICAL RECORDS. [facility]. provides no warranty or guarantee of the accuracy or completeness of information in this document.
--- NOTE | 2025-05-25 08:45 | BRBX_PTH ---
PATIENT: CARLOS GAMEZ LOC: OPUS U#:[id number] AGE/SX: 34/F ROOM: RE05/25/[address]: Dr. Kuldeep Pardo MD : 1990 BED: DIS: 05/25/2025 SPEC #: [id number] RECD: 05/25/25 09:13 STATUS: BENOIT REQ #: [id number] YAHIR: 05/25/25 08:[address]: Kuldeep Pardo DEPT: SURGICAL PATHOLOGY RECD BY: Josemanuel Ryan ENTERED: 05/25/25 10:00 SP TYPE: BREAST BX OTHR DR: Dr. Timo Lucas MD Tissues: A - Right breast, NOS Procedures: Immunohistochemical Stains Surgery Specimen Level IV IHC Stain ADDITIONAL HEADER OPERATION: Ultrasound guided breast biopsy PRE-OP DIAGNOSIS: Right breast lesion TISSUE SUBMITTED: A- Right breast 11o'clock, 4cm from nipple MICROSCOPIC DIAGNOSIS A. Breast, right, ultrasound guided core biopsy: * Benign breast parenchyma with fibroadenoma. * IHC for CK5/6 and p40 support the histologic impression. MICROSCOPIC DESCRIPTION Slides are reviewed. All matched controls reacted appropriately. These tests were developed and their performance characteristics determined by [facility]. They may not have been cleared or approved by the U.S. Food and Drug Administration. The FDA has determined that such clearance or approval is not necessary. The above immunohistochemical markers and/or special stains have been reviewed by the Pathologist. GROSS DESCRIPTION A. Received in formalin labeled with the patient's name and date of . Designated as " R breast" is a 2.0 x 0.7 x 0.3 cm aggregate of gentile-yellow fragmented tissue cores and clotted blood. Entirely submitted in 1 cassette. Cold ischemic time: < 1 minuteFormalin fixation time: 10 hours, 45 minutes [place] 05/25/2025 CPT:[id number]
--- NOTE | 2025-05-25 09:06 | BI_ITS ---
EXAM: DIAG MAMM W/CAD, UNILAT 05/25/2025 CLINICAL HISTORY: F, Age 34 y/o , RT POST BX right breast mass. Mass was biopsied. Document clip placement in relationship to biopsy site. TECHNIQUE: Procedure Code: [id number] Modality: MG Procedure: DIAG MAMM W/CAD, UNILAT. COMPARISON: Prior exam(s) dated 05/12/2025 and 04/30/2024. FINDINGS: TISSUE DENSITY: The breasts are extremely dense, which lowers the sensitivity of mammography. Bilateral Breast Mammographic Findings: A radiopaque clip is seen in the superior outer aspect of the right breast at the post biopsy site. Air and lidocaine are seen along the biopsy tract. There does appear to be a very small residual portion of the mass present. BI/DIAG MAMM W/CAD, UNILAT IMPRESSION: Successful biopsy of the right breast mass. A radiopaque clip is present. Pat hology is pending. OVERALL FINAL ASSESSMENT BI-RADS 4: SUSPICIOUS RECOMMENDATION: OTHER. The suspicious mass has been biopsied. A radiopaque cl ip is not present. Pathology is pending. Additional Recommendation none A letter with findings and recommendations will be mailed to the patient. Reading Location: [id number]
--- NOTE | 2025-05-25 09:38 | OP.PCM_ITS ---
Procedures Integumentary Add On Codes: 59404 Bx breast add lesion us imag Operative Report (Standard) Operative Information Date of Procedure: 05/25/25 Pre-Operative Diagnosis: Abnormal right breast mammogram and ultrasound Post-Operative Diagnosis: Same Surgery/Procedure Performed: Right breast ultrasound-guided mammotome biopsy sustainability engineer: No Type of Anesthesia: Local Procedure Start Time: 08:40 Procedure Stop Time: 09:10 Select all DRAINS/GRAFTS/IMPLANTS that apply: Implanted device Implanted device details: Marking clip deployed Estimated Blood Loss: Minimal Specimen collected: Yes Description of specimen(s) removed: Right breast tissue Description of surgery: The patient is a 34-year-old female who recently was seen to the office with an abnormal right breast mammogram and ultrasound. This was a 3 to 4 mm hypoechoic lesion in the 11 o'clock position of the right breast. This was felt to be too small to biopsy under ultrasound guidance in the office and so this was performe d in radiology using their ultrasound equipment.. After obtaining informed consent, the patient was then placed supine on the procedure room table. instructional support technician was able to identify the lesion. Once this was confirmed, the area was then prepped and draped in the usual sterile manner. Local anesthetic was infiltrated into the vicinity of the lesion. #11 blade was then used to make a 2 mm skin incision. The mammotome biopsy device was then inserted under ultrasound guidance such that the lesion was just anterior to the biopsy trough of the mammotome device. Once this was in good position, a total of 4 biopsy passes were made under ultrasound guidance. This was felt to be confidently biopsied. The patient tolerated this portion well. The mammotome device was then removed and a marking clip was then deployed also under ultrasound guidance. Ultrasound confirmed placement of the clip to be in satisfactory location. Manual pressure was held on the breast for several minutes to ensure hemostasis. There was really minimal blood loss. Steri-Strips and OpSite were then applied as dressing. She tolerated this well. A postprocedure mammogram will be performed. I will contact her with results once they become available Surgical Findings: See procedure note Complications Complications: No Admit VTE Documentation VTE Present on Admission: No VTE Mechan Device Prophylaxis: None VTE Pharm Prophylaxis ordered?: No Reason prophylaxis not ordered: Treatment Not Indicated
== END | disposition home or self-care (01) ==
PROVIDERS: PCP Family Medicine; Referring Provider Surgery; Visit Provider Surgery
DX: N63.11 Unspecified lump in the right breast, upper outer quadrant (principal)
CPT/HCPCS: 19084; 19083; 77065; 88305; 88341; 88342